=== PATIENT | female | born 1950 | race Caucasian/White ===

== ENCOUNTER 2018-08-12 05:50 | Observation (INO) ==
--- NOTE | 2018-07-11 13:36 | PAT Medication Instructions ---
Medication Instructions Date of Service July 11, 2018 Home Medications atorvastatin 80 mg PO HS cyclobenzaprine 10 mg PO TID PRN duloxetine 30 mg PO HS glipizide 10 mg PO QAM hydrocodone-acetaminophen 1 tab PO BID PRN lansoprazole [Prevacid] 30 mg PO QAM levothyroxine 125 mcg PO QAM metformin 850 mg PO BID pioglitazone 45 mg PO QAM sitagliptin [Januvia] 100 mg PO QAM temazepam 30 mg PO HS PRN valsartan 40 mg PO QAM DO NOT take the morning of surgery cyclobenzaprine 10 mg PO TID PRN glipizide 10 mg PO QAM metformin 850 mg PO BID pioglitazone 45 mg PO QAM sitagliptin [Januvia] 100 mg PO QAM valsartan 40 mg PO QAM Take morning of surgery With a small sip of water, OTHERWISE NOTHING TO EAT OR DRINK AFTER MIDNIGHT: hydrocodone-acetaminophen 1 tab PO BID PRN (if needed, may be taken up to four hours before surgery) lansoprazole [Prevacid] 30 mg PO QAM levothyroxine 125 mcg PO QAM Take evening before surgery atorvastatin 80 mg PO HS cyclobenzaprine 10 mg PO TID PRN (if needed) duloxetine 30 mg PO HS hydrocodone-acetaminophen 1 tab PO BID PRN (if needed) metformin 850 mg PO BID temazepam 30 mg PO HS PRN (if needed) Other Notes If you have any questions please call us at [phone] or [phone] or [phone] or [phone]
--- NOTE | 2018-07-12 13:14 | Anesthesiology Consultation ---
Date of Service July 12, 2018 Assessment & Plan (1) Encounter for pre-operative examination: CHECK BSG AM DOS Chart Review Chart Review: Acceptable Risk for Surgery and Patient seen in Pre Admission Testing Teaching & Discussion Instructed NPO after midnight before surgery, except medications with 15 cc of water. Medication instructions provided according to the PAT guidelines. History Surgery Operation Date: 08/12/18 07:30 Proposed Procedures p L2-L3 Laminectomy and Fusion - Melo Sapp, Height/Weight Height: 5 ft 5 in Weight: 109.8 kg Allergies Allergy/AdvReac Type Severity Reaction Status Date / Time citalopram [From Celexa] AdvReac Gastrointestinal Verified 07/09/18 10:07 Upset sertraline [From Zoloft] AdvReac Gastrointestinal Verified 07/09/18 10:07 Upset trazodone AdvReac Gastrointestinal Verified 07/09/18 10:07 Upset Medications Home Medications Medication Instructions Recorded Confirmed Last Taken atorvastatin 80 mg PO HS 07/09/18 07/09/18 Unknown cyclobenzaprine 10 mg PO TID PRN 07/09/18 07/09/18 Unknown duloxetine 30 mg PO HS 07/09/18 07/09/18 Unknown glipizide 10 mg PO QAM 07/09/18 07/09/18 Unknown hydrocodone-acetaminophen 1 tab PO BID PRN 07/09/18 07/09/18 Unknown lansoprazole [Prevacid] 30 mg PO QAM 07/09/18 07/09/18 Unknown levothyroxine 125 mcg PO QAM 07/09/18 07/09/18 Unknown metformin 850 mg PO BID 07/09/18 07/09/18 Unknown pioglitazone 45 mg PO QAM 07/09/18 07/09/18 Unknown sitagliptin [Januvia] 100 mg PO QAM 07/09/18 07/09/18 Unknown temazepam 30 mg PO HS PRN 07/09/18 07/09/18 Unknown valsartan 40 mg PO QAM 07/09/18 07/09/18 Unknown Past Medical History Medical History Chronic back pain PT STATES +PAIN RADIATING FROM LOWER BACK INTO RIGHT HIP AND LEG. Degenerative disc disease Diabetes mellitus, type 2 GERD (gastroesophageal reflux disease) History of breast cancer s/p R mastectomy and subsequent reconstruction Hyperlipidemia Hypertension Hypothyroidism Morbid obesity Osteoarthritis Exercise / Class Metabolic Activity III < 4 Walking/Shop/Light housework (has been very limited by back pain recently, but denies CP or SOB with walking) Past Surgical History Surgical History History of breast surgery RECONTRUCTIVE SURGERY 1 YEAR FOLLOWING MASTECTOMY History of carpal tunnel release B/L History of cataract extraction with lens replacement B/L History of section X2 History of cholecystectomy History of hysterectomy History of repair of rotator cuff B/L SHOULDER History of right mastectomy History of tonsillectomy Past Anesthesia History No Hx of Anesthesia Complications and No Family Hx of Anesthesia Complications History of PONV No Hx of PONV and No Hx of Motion Sickness Social History Smoking Status: Former smoker tobacco type: cigarettes Smoking cigarettes per day: HX OF 1PPD X 20 YEARS, QUIT 20 YEARS AGO Do You Dip or Chew Tobacco: No Hx Alcohol Use: No Alcohol Intake Frequency Comment: NONE Hx Substance Use: No substance use type: does not use Review of Systems Pt denies any recent chest pain, shortness of breath, palpitations, cough, fever or URI. Physical Exam Vital Signs BP: 98/67 (reports occasional orthostatic hypotension symptoms; BP med was recently lowered) P: 79bpm SPO2: 95% RA T: 98.2 F R: 16 Constitutional + morbidly obese ENMT Mouth: + dentures and + edentulous Thyromental Distance: < 3.5 Finger Breadths (3) Neck + thick neck; neck extension not limited Respiratory normal respiratory effort Auscultation: lungs clear to auscultation bilaterally Cardiovascular Rate/Rhythm: regular rate and regular rhythm Heart Sounds: no murmur Vessels: no carotid bruit Extremities: no edema Testing Electrocardiogram Date: 07/12/18 Findings: + NSR @ (74) Chest X-Ray Date: 07/12/18 Findings: + NAD Laboratory Results 07/12/18 12:54 07/12/18 12:54 Blood Type B Positive 07/12/18 12:54 Antibody Screen NEGATIVE 07/12/18 12:54 PT 10.3 Seconds (9.0-12.0) 07/12/18 12:54 INR 1.0 (0.9-1.1) 07/12/18 12:54 APTT 25.6 Seconds (21.0-31.0) 07/12/18 12:54
[2018-07-12 13:44] LABS: Basophils # (auto) 0.02 K/uL (0-0.2); Basophils % (auto) 0.4 %; Eosinophils # (auto) 0.13 K/uL (0-0.5); Eosinophils % (auto) 2.3 %; Hematocrit (blood only) 37.9 % (37-47); Hemoglobin 12.5 g/dL (12.0-16.0); Immature Granulocytes # (auto) 0.02 K/uL (0.00-0.02); Immature Granulocytes % (auto) 0.4 %; Lymphocytes # (auto) 1.83 K/uL (1.2-3.4); Lymphocytes % (auto) 32.3 %; Mean Corpuscular Volume 87.5 fL (80-100); Mean Platelet Volume 11.4 fL (7.4-10.4); Monocytes # (auto) 0.65 K/uL (0.11-0.59); Monocytes % (auto) 11.5 %; Neutrophils # (auto) 3.02 K/uL (1.4-6.5); Neutrophils % (auto) 53.1 %; Platelet Count 304 K/uL (130-400); RDW Coefficient of Variation 14.2 % (11.5-14.5); RDW Standard Deviation 45.7 fL (36.4-46.3); Red Blood Count 4.33 M/uL (4.2-5.4); White Blood Count 5.67 K/uL (4.8-10.8)
--- NOTE | 2018-07-12 13:44 | XRay Report ---
TWO VIEW CHEST CLINICAL HISTORY: Preoperative examination. FINDINGS: PA and lateral chest radiographs are obtained. No prior studies are available for compariso n at the time of dictation. The cardiomediastinal silhouette is unremarkable comment noting atherosc lerotic calcification of the thoracic aorta. There is elevation of right hemidiaphragm and bibasilar atelectasis. Nonspecific interstitial thickening is likely chronic. No airspace consolidation or pleu ral effusion is identified. There is no pneumothorax. The skeletal structures are osteopenic. The bon y thorax appears intact. Surgical clips are noted in the right axilla and upper abdomen. IMPRESSION: No active disease in the chest. Electronically signed by: Jimmy Cox M.D. 07/12/2018 1:42 PM
[2018-07-12 14:05] LABS: Partial Thromboplastin Ratio 0.9; Partial Thromboplastin Time 25.6 Seconds (21.0-31.0); Prothrombin Time 10.3 Seconds (9.0-12.0)
[2018-07-12 14:53] LABS: BUN Creatinine Ratio 10.7 (10-20); Creatinine Clr Calc Pharmacy 67.1 ml/min; Est GFR (African American) 67.9; Est GFR (Non-African American) 58.6; Potassium 4.3 mmol/L (3.5-5.1)
--- NOTE | 2018-08-09 10:41 | History and Physical Report ---
DATE OF ADMISSION: 08/12/2018 PREOPERATIVE SURGERY: 08/12/2018. CHIEF COMPLAINT: Back and lower extremity difficulty, paresthesias. WORKING DIAGNOSIS: Disc herniation, L2-L3, lumbar spine. HISTORY OF PRESENT ILLNESS: Aure is delightful. She is 68. She has a lumbar difficulty for 2 decades, uncontrolled last month or so with increasing back and lower extremity difficulty, weakness. She has failed conservative care. She is scheduled for elective surgery. PAST MEDICAL HISTORY: Diabetes, hypertension, breast CA. PAST SURGICAL HISTORY: Shoulder breast carcinoma surgery, carpal tunnel, . ALLERGIES: Negative. MEDICATIONS: Zocor, hydrochlorothiazide. SOCIAL HISTORY: She is , does not drink. Two grown children. No tobacco. REVIEW OF SYSTEMS: Twelve systems reviewed. She denies any fevers, sweats, chills, any bowel and bladder issues. No pain, cough, sneeze. Denies chest pain, palpitations. No asthma, wheezing, shortness of breath. No nausea, vomiting. No urgency, frequency, dysuria. Has musculoskeletal back pain, only positive. PHYSICAL EXAMINATION: GENERAL: She is 5 feet 3 inches, 239 pounds, in no terrible distress. MUSCULOSKELETAL: She has difficulty with ambulation, difficulty with flexion of the spine. She has some numbness and tingling. VITAL SIGNS: Blood pressure 130/80, pulse 80, respirations 16. CARDIAC: Normal S1, S2, no S3. LUNGS: Clear to auscultation. No rales, rhonchi, wheezing. NEUROLOGIC: She has weakness of the quadriceps area, weakness of iliopsoas. Reflexes are blunted and decreased strength. ASSESSMENT: Includes that of a disc herniation, lumbar spine. PLAN: Includes a lumbar spine discectomy, L2-L3 and fusion L2-L3 lumbar spine, will be done at [facility], 08/12/2018.
[2018-08-12] MEDS ORDERED: CEFAZOLIN 2000MG 2,000 MG/15 ML SYR IV SCH (06:00)
[2018-08-12] MEDS ORDERED: SODIUM CHLORIDE 0.9% 1,000 ML IV SCH (06:00)
[2018-08-12] MEDS ORDERED: LR 15ML/HR IV SCH (06:00)
[2018-08-12] MEDS ORDERED: ACETAMINOPHEN 1,000 MG/100 ML VIAL IV SCH (06:00)
[2018-08-12] MEDS ORDERED: VANCOMYCIN HCL 1000MG/20ML VIAL ONE ×2 (07:02→07:22)
[2018-08-12] MEDS ORDERED: BACITRACIN INJ 50,000 UNIT VIAL ONE (07:02)
[2018-08-12] MEDS ORDERED: GELATIN SPONGE SZ 100 ONE (07:02)
[2018-08-12] MEDS ORDERED: THROMBIN FOR SOLN 20000 UNIT KIT ONE (07:02)
[2018-08-12] MEDS ORDERED: BUPIVACAINE/EPINEPHRINE 0.5% MPF 1:200,000 30 ML VIAL ONE (07:03)
[2018-08-12] MEDS ORDERED: MIDAZOLAM HCL 1 MG/ML 2ML VIAL ONE (07:09)
[2018-08-12] MEDS ORDERED: fentaNYL citrate 100 MCG/2 ML VIAL ONE (07:10)
[2018-08-12] MEDS ORDERED: ATROPINE SULFATE 0.1 MG/ML 10ML SYR IV PRN (07:19)
[2018-08-12] MEDS ORDERED: ONDANSETRON INJ 2 MG/ML 2 ML VIAL IV PRN (07:19)
[2018-08-12] MEDS ORDERED: ePHEDrine sulfate 50 MG/ML AMP IV PRN (07:19)
[2018-08-12] MEDS ORDERED: MoRPHine SULFATE 10 MG/ML CARP/VIAL IV PRN (07:19)
--- NOTE | 2018-08-12 07:19 | History & Physical Bridge Note ---
Date of Service August 12, 2018 History & Physical Bridge Note I have examined the patient, reviewed the History & Physical and in the interval since the performance of the History & Physical I have noted the following changes of clinical significance: no changes noted
[2018-08-12] MEDS ORDERED: ONDANSETRON INJ 2 MG/ML 2 ML VIAL ONE (08:22)
[2018-08-12] MEDS ORDERED: ePHEDrine sulfate 50 MG/ML SYR ONE (08:22)
[2018-08-12] MEDS ORDERED: DEXAMETHASONE SOD INJ 4 MG/ML VIAL ONE (08:22)
[2018-08-12] MEDS ORDERED: NEOSTIGMINE METHYLSULFATE 5 MG/5 ML SYR ONE (08:22)
[2018-08-12] MEDS ORDERED: LARYING-O-JET KIT (LTA) ONE (08:22)
[2018-08-12] MEDS ORDERED: ROCURONIUM BROMIDE 10 MG/ML 5 ML VIAL ONE (08:22)
[2018-08-12] MEDS ORDERED: HYDROmorphone INJ 2 MG/ML SYR/VIAL ONE (08:22)
[2018-08-12] MEDS ORDERED: PROPOFOL IV EMULSION 10 MG/ML 20 ML VIAL IV ONE (08:22)
[2018-08-12] MEDS ORDERED: LIDOCAINE HCL 2% 2 ML VIAL/AMP(20MG/ML) INFIL ONE (08:22)
[2018-08-12] MEDS ORDERED: GLYCOPYRROLATE 0.2 MG/ML VIAL ONE (08:22)
--- NOTE | 2018-08-12 09:30 | Fluoroscopy Report ---
FL spine 1V any level CLINICAL HISTORY: 68 years-old Female presenting with L2-L3 LAMI AND FUSION. TECHNIQUE: 1 fluoroscopic image(s) recorded as part of an intraoperative procedure. COMPARISON: 07/05/2018. FINDINGS/IMPRESSION: Surgical and she mentation projects over the lower lumbar spine. Posterior bilateral presumably trans pedicular screw and leland fixation of 2 adjacent levels in the lumbar spine. Please see surgical report for further details. Fluoroscopy dosage (mGy): 5.77. Fluoroscopy time: 7.7 seconds. Number or time of high level fluoroscopy (HLF), digital spot, or digital subtraction images: 0. Electronically signed by: Garrick Vu M.D. 08/12/2018 9:29 AM
[2018-08-12] MEDS: fentaNYL citrate 100 MCG/2 ML VIAL IV PRN ×3 (09:49→10:00)
--- NOTE | 2018-08-12 10:12 | Operative Report ---
DATE OF OPERATION: 08/12/2018 PREOPERATIVE DIAGNOSES: Large disc herniation L2-L3 lumbar spine; instability, lumbar spine L2-L3. POSTOPERATIVE DIAGNOSES: Large disc herniation L2-L3 lumbar spine; instability, lumbar spine L2-L3. PROCEDURE: Included: 1. A posterior approach lumbar spine decompression laminectomy, foraminotomy and discectomy L2-L3 lumbar spine. 2. Because of the instability, pedicle screw instrumentation at 2-3 lumbar spine. 3. Lastly the posterolateral fusion. Prior to patient being brought to the operating room, I properly identified the patient in the holding area. I did a bridge note as well. DESCRIPTION OF PROCEDURE: We brought her back to the operating room, a general intubated anesthetic provided, Underwood catheter administered. Placed prone, scrubbed, prepped and draped sterile. We made a skin incision, fascial incision down on to the L2-L3 interspace. I had to carefully dissect out over the dura to find the associated nerve root. I thought was able to deliver most of the disc material into the disc area. I did a formal discectomy. I felt that the facet joints were fairly unstable and fairly loose and there is a sort of [id number] instability, but not gross instability such as a spondylolisthesis. I felt obligated to stabilize the spine. Thus 2 pedicle screws were placed into 2 and 3 to stabilize the 2-3 interval. It fit perfectly anatomic and the reduction was appropriate. We irrigated and closed in layers with #1 Vicryl suture, 2-0 and 3-0 nylon on the skin. Prior to closure, we bone grafted out over the transverse processes of 2-3 as well to initiate the spinal fusion. The drain was activated. The patient brought safely back to recovery room without incident. Sponge and needle count correct at the close. IMPLANTS USED: For the spinal case were from [employer] with a combination of autograft and a demineralized bone matrix called DBM. I attest to the content of the Intraoperative Record and any orders documented therein. Any exception s are noted below.
--- NOTE | 2018-08-12 10:25 | Anesthesiology Progress Note ---
Date of Service August 12, 2018 Anesthesia Post Procedure Vital Signs Vital Signs: Temp Pulse Pulse Pulse Resp BP BP 08/12/18 10:16 97.5 F L 106 H 12 146/73 H 08/12/18 10:15 102 H 14 08/12/18 10:11 105 H 14 165/83 H 08/12/18 10:10 105 H 14 08/12/18 10:07 107 H 16 156/73 H 08/12/18 10:05 105 H 10 L 08/12/18 10:01 107 H 14 166/79 H 08/12/18 10:00 104 H 14 08/12/18 09:56 103 H 14 158/69 H 08/12/18 09:55 107 H 16 08/12/18 09:51 106 H 14 175/71 H 08/12/18 09:50 106 H 14 08/12/18 09:46 107 H 14 181/83 H 08/12/18 09:45 113 H 13 08/12/18 09:41 113 H 21 187/100 H 08/12/18 09:40 118 H 20 08/12/18 09:38 118 H 23 08/12/18 09:37 97.5 F L 121 H 106 H 14 246/141 H 187/100 H 08/12/18 06:26 98.2 F 92 H 22 140/81 Pulse Ox 08/12/18 10:16 96 08/12/18 10:15 97 08/12/18 10:11 98 08/12/18 10:10 95 08/12/18 10:07 95 08/12/18 10:05 86 L 08/12/18 10:01 100 08/12/18 10:00 95 08/12/18 09:56 96 08/12/18 09:55 98 08/12/18 09:51 98 08/12/18 09:50 100 08/12/18 09:46 97 08/12/18 09:45 96 08/12/18 09:41 95 08/12/18 09:40 94 08/12/18 09:38 08/12/18 09:37 96 08/12/18 06:26 93 Pain Intensity Back: Pain Intensity: 5 Transfer of Care Handoff Completed per policy Notes Mental Status: alert / awake / arousable and participated in evaluation Patient Amnestic to Procedure: Yes Nausea / Vomiting: adequately controlled Pain: adequately controlled Airway Patency, RR, SpO2: stable & adequate BP & HR: stable & adequate Hydration State: stable & adequate Anesthetic Complications: no major complications apparent and Pt Satisfied with anesthetic care
[2018-08-12] MEDS ORDERED: METOCLOPRAMIDE HCL INJ 5 MG/ML 2 ML VIAL IV PRN (10:43)
[2018-08-12] MEDS ORDERED: MAGNESIUM HYDROXIDE SUSP 30 ML UDC PO PRN (10:43)
[2018-08-12] MEDS ORDERED: BISACODYL 10 MG SUPP PR PRN (10:43)
[2018-08-12] MEDS ORDERED: ACETAMINOPHEN 1,000 MG/100 ML VIAL IV PRN ×2 (10:43)
[2018-08-12] MEDS ORDERED: PHARMACY GLYCEMIC MGMT CONSULT SCH (11:04)
[2018-08-12] MEDS ORDERED: DEXTROSE 50% 50 ML SYRINGE IV PRN (11:15)
[2018-08-12] MEDS ORDERED: GLUCAGON FOR INJ 1 MG VIAL IM PRN (11:15)
[2018-08-12] MEDS ORDERED: GLUCOSE 10 TABS/TUBE PO PRN (11:15)
[2018-08-12] MEDS ORDERED: GLUCOSE 40% GEL 15 GM TUBE PO PRN (11:15)
[2018-08-12] MEDS ORDERED: CARBOHYDRATES FOR HYPOGLYCEMIA PO PRN (11:15)
[2018-08-12] MEDS ORDERED: INSULIN GLARGINE SOLOSTAR 100 UNITS/ML 3 ML PEN SC ONE ×3 (11:15→21:00)
--- NOTE | 2018-08-12 11:17 | Pharmacy Report ---
Glycemic Control Consultation - Date of Service August 12, 2018 - Scope Scope: Glycemic Pharmacist consulted by Judson Yen PA-C on 08/12/18 for glycemic control and to write orders per [facility] inpatient glycemic control protocol - Objective Weight: 110.2 kg Accuchecks BSG (last 24hrs): 08/12/18 08/12/18 06:20 09:40 POC Glucose 157 H 132 H - Recent Pertinent Medications Outpatient Anti-diabetic Regimen: * Glipizide 10mg PO Daily * Metformin 850mg PO BID * Pioglitizone 45mg PO Daily * Sitagliptin 100mg PO Daily * A1c = 7.3 % 12/20/17, new A1c on order Risk Factors for Insulin Resistance: * Steroids: Dexamethasone 4mg IV x1 preop * Infection: cefazolin pre and postop * Recent Surgery: s/p lumbar decompression and fusion * Diet: Type 2 DM - Assessment & Plan Assessment & Plan: ASSESSMENT: * 68 year old female s/p lumbar decompression and fusion, received 1 dose of Dexamethasone 4mg IV. * Type 2 diabetic maintained on oral antidiabetic agents as an outpatient * Oral agents are not recommended for inpatient use d/t drug interactions, changing PO intake, and difficulty titrating for acute hyper/hypoglycemia. ADA recommends re-initiating outpatient oral agents 1-2 days prior to discharge if/when appropriate if they were held on admission. * Will hold oral agents for admission and utilize SQ basal bolus insulin regimen which is the recommended regimen for inpatient glycemic control. * Will initiate weight based insulin dosing for insulin kandice patient and titrate based on BSG trends. * Will give stressed dose of Lantus x 1 now to over effects of IV Steroid, and PRN dose tonight, and accuchecks overnight * Will loosen CF and CR as steroid effects wear off * Order updated A1c * ADA & AACE recommend a goal blood sugar range 140-180 mg/dl for the majority of critically ill & non-critically ill patients. However, more stringent targets may be selected in individual cases. Will utilize more stringent goal of 110-140mg/dl based on patient age & comorbidities. Additionally, tighter glycemic control is warranted to facilitate wound/infection healing. PLAN FOR INPATIENT GLYCEMIC CONTROL: * Holding outpatient oral diabetes medications * Basal insulin * Lantus 40 units SQ x 1 dose now at 1130, then 20 units HS x1 for BSG > 180mg/dl * Bolus insulin * NovoLog per scale ACHS or Q6hrs while NPO and overnight at 0000, 0400 * Goal Range: Low 110 mg/dL - High 140 mg/dL * Correction Factor: 15 mg/dL/unit * Nutritional / Prandial insulin per carb ratio of 1 unit per 5 grams CHO consumed * Please note that the plan above was derived based on current level of insulin resistance and hospital stress. These recommendations are appropriate for inpatient admission only. Plan of care upon discharge will need to be reassessed to avoid potential outpatient hypo/hyperglycemia. Thank you.
--- NOTE | 2018-08-12 11:21 | Post Operative Brief Note ---
Immediate Post Op Note v1 Date of Surgery August 12, 2018 Pre & Post Diagnosis Operation Date: 08/12/18 07:30 Pre-Op Diagnosis: Disc herniation, L2-L3, lumbar spine. Post-Op Diagnosis: Disc herniation, L2-L3, lumbar spine. Procedure Operation Date: 08/12/18 07:30 Actual Procedures p L2-L3 Laminectomy and Fusion(Not Applicable) - Melo Sapp DO Surgeon Melo Sapp DO Call Person lilia Estimated Blood Loss 100 Findings Consistent with Post-Op Diagnosis Drains Underwood Catheter and Hemovac Drain
[2018-08-12] MEDS: OXYCODONE HCL IR 5 MG TAB (IMMEDIATE RELEASE) PO PRN ×2 (12:39→18:03)
[2018-08-12] MEDS: INSULIN ASPART 100 UNITS/ML 3 ML PEN SC SCH ×3 (12:46→20:50)
[2018-08-12] MEDS: SODIUM CHLORIDE 0.9% 1000ML 1,000 ML IV SCH ×2 (12:47→22:31)
[2018-08-12] MEDS: HYDROmorphone INJ 0.5 MG/0.5 ML SYR IV PRN ×2 (13:53→22:30)
[2018-08-12] MEDS: CEFAZOLIN 2000MG 2,000 MG/15 ML SYR IV SCH ×2 (14:16→22:32)
[2018-08-12] MEDS: ONDANSETRON INJ 2 MG/ML 2 ML VIAL IV PRN (19:03)
[2018-08-12] MEDS ORDERED: ATORVASTATIN 40 MG TAB PO SCH (21:00)
[2018-08-12] MEDS ORDERED: DOCUSATE SODIUM/SENNA 50/8.6MG TAB PO SCH (21:00)
[2018-08-13] MEDS: INSULIN ASPART 100 UNITS/ML 3 ML PEN SC SCH ×4 (00:30→12:58)
[2018-08-13] MEDS: OXYCODONE HCL IR 5 MG TAB (IMMEDIATE RELEASE) PO PRN ×3 (02:14→16:04)
[2018-08-13] MEDS: ONDANSETRON INJ 2 MG/ML 2 ML VIAL IV PRN (02:15)
[2018-08-13] MEDS ORDERED: LEVOTHYROXINE SODIUM 125 MCG TABLET PO SCH (06:30)
[2018-08-13] MEDS: HYDROmorphone INJ 0.5 MG/0.5 ML SYR IV PRN (07:31)
[2018-08-13 07:34] LABS: Estimated Average Glucose 186 mg/dl; Hemoglobin A1C 8.1 % (4.5-5.6)
--- NOTE | 2018-08-13 07:56 | Anesthesiology Progress Note ---
Date of Service August 13, 2018 Anesthesia Post Procedure Vital Signs Vital Signs: Temp Pulse Pulse Pulse Resp BP BP 08/13/18 07:28 37.2 C 117 H 18 138/72 08/13/18 03:51 37.3 C 111 H 16 140/71 08/12/18 23:10 37.3 C 95 H 18 144/85 H 08/12/18 19:40 36.8 C 87 18 144/81 H 08/12/18 16:51 36.3 C L 08/12/18 15:33 74 16 142/83 H 08/12/18 13:30 87 16 143/84 H 08/12/18 12:27 99 H 16 153/83 H 08/12/18 11:29 94 H 16 141/84 H 08/12/18 11:01 36.5 C 101 H 16 149/82 H 08/12/18 10:30 36.5 C 103 H 14 143/80 H 08/12/18 10:16 36.4 C L 106 H 12 146/73 H 08/12/18 10:15 102 H 14 08/12/18 10:11 105 H 14 165/83 H 08/12/18 10:10 105 H 14 08/12/18 10:07 107 H 16 156/73 H 08/12/18 10:05 105 H 10 L 08/12/18 10:01 107 H 14 166/79 H 08/12/18 10:00 104 H 14 08/12/18 09:56 103 H 14 158/69 H 08/12/18 09:55 107 H 16 08/12/18 09:51 106 H 14 175/71 H 08/12/18 09:50 106 H 14 08/12/18 09:46 107 H 14 181/83 H 08/12/18 09:45 113 H 13 08/12/18 09:41 113 H 21 187/100 H 08/12/18 09:40 118 H 20 08/12/18 09:38 118 H 23 08/12/18 09:37 36.4 C L 121 H 106 H 14 246/141 H 187/100 H Pulse Ox 08/13/18 07:28 93 08/13/18 03:51 96 08/12/18 23:10 94 08/12/18 19:40 99 08/12/18 16:51 95 08/12/18 15:33 08/12/18 13:30 08/12/18 12:27 95 08/12/18 11:29 08/12/18 11:01 08/12/18 10:30 94 08/12/18 10:16 96 08/12/18 10:15 97 08/12/18 10:11 98 08/12/18 10:10 95 08/12/18 10:07 95 08/12/18 10:05 86 L 08/12/18 10:01 100 08/12/18 10:00 95 08/12/18 09:56 96 08/12/18 09:55 98 08/12/18 09:51 98 08/12/18 09:50 100 08/12/18 09:46 97 08/12/18 09:45 96 08/12/18 09:41 95 08/12/18 09:40 94 08/12/18 09:38 08/12/18 09:37 96 Pain Intensity Back: Pain Intensity: 3 Notes Mental Status: alert / awake / arousable and participated in evaluation Patient Amnestic to Procedure: Yes Nausea / Vomiting: adequately controlled Pain: adequately controlled Airway Patency, RR, SpO2: stable & adequate BP & HR: stable & adequate Hydration State: stable & adequate Anesthetic Complications: no major complications apparent and Pt Satisfied with anesthetic care
[2018-08-13] MEDS ORDERED: INSULIN GLARGINE SOLOSTAR 100 UNITS/ML 3 ML PEN SC ONE ×2 (08:30→18:00)
[2018-08-13] MEDS ORDERED: SITAGLIPTIN PHOSPHATE 100 MG TAB PO SCH (09:00)
[2018-08-13] MEDS ORDERED: PANTOprazole 40 MG TAB PO SCH (09:00)
[2018-08-13] MEDS ORDERED: VALSARTAN 80 MG TAB PO SCH (09:00)
--- NOTE | 2018-08-14 08:28 | Discharge Summary ---
SUBJECTIVE: She is alert, oriented, minimal complaints of pain. Taking p.o., ambulatory. She has had an uneventful admission. PLAN: We will discharge her home later on today. She has physical therapy ordered, will change her dressing. She has a followup appointment and prescriptions are on her chart.
--- NOTE | 2018-08-20 11:07 | Operative Report ---
DATE OF OPERATION: 08/12/2018 PREOPERATIVE DIAGNOSIS: Instability and large disc herniation, lumbar spine at L2-L3. POSTOPERATIVE DIAGNOSIS: Instability and large disc herniation, lumbar spine at L2-L3. PROCEDURES: Included a lumbar spine laminectomy, discectomy, foraminotomy, partial facetectomy and resection of a large lateral disc herniation, lumbar spine at L2-L3, also pedicle screw instrumentation and fusion L2-L3. SURGEON: Melo Sapp DO [employer] OPERATOR: Joe Yen PA-C. COMPLICATIONS: Zero. ESTIMATED BLOOD LOSS: 250. ANESTHETIC: General. DESCRIPTION OF PROCEDURE: The patient was taken to the operating room and general intubated anesthetic provided to the patient, placed prone, prepped and draped sterile. We positively identified the interspace at L2-L3, dissecting the soft tissue in the same plane. I did a laminectomy procedure. I did take out the facet joint on the affected side to decompress the associated nerve root and to do a rigorous discectomy. I felt with the dissection of the facet joint and the rigorous discectomy that she was relatively unstable. I felt at that point in time, she needed instrumentation as I went forward with pedicle screws at L2 and L3, locked down the construct in anatomic position. The pedicle entry points were found with anatomic alignment and guidelines along with C-arm guidelines as well. I was pleased with the fixation. We irrigated thoroughly with approximately 500 mL of fluid. We packed and bone graft out over the transverse processes. We closed in layer by layer fashion with 1 Vicryl suture over a Hemovac drain and over vancomycin powder. The patient was brought to recovery room in satisfactory stable condition. There were no complications. Estimated blood loss 250 mL. MATERIALS USED: By the [employer], pedicle screw construct, single level and combination of autograft and demineralized bone matrix. Sponge and needle count also correct. I attest to the content of the Intraoperative Record and any orders documented therein. Any exception s are noted below.
== END 2018-08-13 16:50 | disposition home or self-care (01) ==
LOC: ASU 05:50 → 3E 05:50

== ENCOUNTER 2018-08-15 16:23 | Inpatient (IN) ==
[2018-08-15] MEDS ORDERED: GLUCOSE 10 TABS/TUBE PO PRN (19:15)
[2018-08-15] MEDS ORDERED: CARBOHYDRATES FOR HYPOGLYCEMIA PO PRN (19:15)
[2018-08-15] MEDS ORDERED: GLUCOSE 40% GEL 15 GM TUBE PO PRN (19:15)
[2018-08-15] MEDS ORDERED: DEXTROSE 50% 50 ML SYRINGE IV PRN (19:15)
[2018-08-15] MEDS ORDERED: GLUCAGON FOR INJ 1 MG VIAL IM PRN (19:15)
--- NOTE | 2018-08-15 19:29 | History & Physical Report ---
Date of Service August 15, 2018 Assessment & Plan (1) Fever and chills: 68 y/o F Hx HTN, HLD, DM II, obese, hypothyroid, lumbar stenosis. She underwent an uncomplicated L2-3 discectomy and fusion 08/12/18. She had been recovering well initially and then had onset of worsening back pain, difficulty walking and fevers. She reports a Tmax of 102 the prior evening. She denies a cough, SOB, N/V/Adeline dysuria. It is not clear if she is have lower extremity weakness or if she is unable to walk due to pain. She presented to [place] initially and was transferred to [facility] as her surgery took place here. Review of labs from [place] demonstrate a normal lactic acid, Anemia with an H b of 8.7 and an elevated ALT and Alk phos. 1) Back pain and fever post-op - We will obtain an MRI with contrast and consult the orthopedist. She will be placed on Vanc and ceftriaxone in the interim. Narcotics provided PRN. NPO after midnight, IVF. 2) DM II - placed on a sliding scale 3) HTN - cont Valsartan with parameters 4) HLD - cont Atorvastatin 5) Hypothyroidism - cont Synthroid 6) LFTs elevated - this may be a post-op elevation. She does not have any GI symptoms at present - we will trend AM. Full code - SCDs Total time for this admit including review of labs, meds, imaging, records - discussion with pt and orthopedist - 40 min Present on Admission?: Yes History of Present Illness Primary Care Provider: Dion Randall MD 68 y/o F Hx HTN, HLD, DM II, obese, hypothyroid, lumbar stenosis. She underwent an uncomplicated L2-3 discectomy and fusion 08/12/18. She had been recovering well initially and then had onset of worsening back pain, difficulty walking and fevers. She reports a Tmax of 102 the prior evening. She denies a cough, SOB, N/V/Adeline dysuria. It is not clear if she is have lower extremity weakness or if she is unable to walk due to pain. She presented to [place] initially and was transferred to [facility] as her surgery took place here. Review of labs from [place] demonstrate a normal lactic acid, Anemia with an Hb of 8.7 and an elevated ALT and Alk phos. 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 Allergies Allergy/AdvReac Type Severity Reaction Status Date / Time citalopram [From Celexa] AdvReac Gastrointestinal Verified 08/12/18 06:17 Upset oxycodone [From Roxicodone] AdvReac Agitated Verified 08/15/18 18:44 sertraline [From Zoloft] AdvReac Gastrointestinal Verified 08/12/18 06:17 Upset trazodone AdvReac Gastrointestinal Verified 08/12/18 06:17 Upset Home Medications Home Medications Medication Instructions Recorded Confirmed Type Januvia 100 mg PO QAM 07/09/18 08/12/18 History glipizide 10 mg PO QAM 07/09/18 08/12/18 History lansoprazole [Prevacid] 30 mg PO QAM 07/09/18 08/12/18 History levothyroxine 125 mcg PO QAM 07/09/18 08/12/18 History pioglitazone 45 mg PO QAM 07/09/18 08/12/18 History temazepam 30 mg PO HS PRN 07/09/18 08/12/18 History valsartan 40 mg PO QAM 07/09/18 08/12/18 History metformin 750 mg PO BID 08/12/18 08/12/18 History hydrocodone-acetaminophen 1 tab PO Q6H PRN #40 tab 08/13/18 Rx atorvastatin 80 mg tablet 80 mg PO HS #90 tab 08/14/18 08/14/18 Rx blood sugar diagnostic strips #10 ea 08/14/18 08/14/18 History duloxetine 30 mg capsule,delayed 30 mg PO DAILY #1 cap 08/14/18 08/14/18 History release gabapentin 800 mg tablet 800 mg PO TID #90 tab 08/14/18 08/14/18 History lancets 33 gauge #100 ea 08/14/18 08/14/18 History Past Med/Surg History Medical History Chronic back pain PT STATES +PAIN RADIATING FROM LOWER BACK INTO RIGHT HIP AND LEG. Degenerative disc disease Diabetes mellitus, type 2 GERD (gastroesophageal reflux disease) History of breast cancer s/p R mastectomy and subsequent reconstruction Hyperlipidemia Hypertension Hypothyroidism Morbid obesity Osteoarthritis Surgical History S/P lumbar spinal fusion 08/12/18 Dr. Melo Sapp History of breast surgery RECONTRUCTIVE SURGERY 1 YEAR FOLLOWING MASTECTOMY History of carpal tunnel release B/L History of cataract extraction with lens replacement B/L History of section X2 History of cholecystectomy History of hysterectomy History of repair of rotator cuff B/L SHOULDER History of right mastectomy History of tonsillectomy Social History Preferred Language: Citizen Of [place] Communication Ability: Effective Videogame Tester Required: No Beliefs That Will Affect Care: None Current Living Situation: Family Other Information That Helps Us Care for You: No Feels Safe at Home: Yes Safety Concerns: Feels Safe At This Time Smoking Status: Former smoker Tobacco Type: cigarettes Cigarettes Per Day: history of 1 PPD X 20 years, quit 20 years ago, 1998 Do You Dip or Chew Tobacco: No Second Hand Exposure: No Tobacco Cessation Education Requested by Patient: No Hx Alcohol Use: No Hx Substance Use: No Review of Systems Review of Systems: Gen: + fever and weakness x 2 days ENT: Denies congestion, throat pain, hearing loss Eyes: Denies acute visual changes CV: Denies CP, palpitations Pulmonary: Denies SOB, cough, wheezing GI: Denies N/V, diarrhea, constipation Neuro: Denies acute or unilateral weakness, acute gait impairment, headache or acute visual changes Musculoskeletal: reports severe lower back pain and difficulty ambulating Endocrine: Denies polydipsia, polyuria Skin: Denies acute rashes or ulcers Physical Exam Physical Exam: General: Obese, elderly F, AAO x 3, no distress ENT: No erythema or exudates, no thrush Eyes: LENA, EOMI Head and neck: Normocephalic, atraumatic, neck is supple. Chest/heart: Nontender, S1,2, RRR, no murmurs, no gallops Lungs: CTAB, no wheezing or crackles Abdomen: Nontender, nondistended, BS+ Neuro: AAO x 3, speech is clear, no unilateral weakness or loss of sensation, coordination intact - strength and sensation are intact in th LE BL - did not attempt to ambulate - proximal strength testing was limited by pain Musculoskeletal: No joint inflammation, muscle tenderness, FROM Skin: No acute rashes or ulcers - incision sit on lower back does not display evidence of infection and appears to be healing well. Extremities: No clubbing, cyanosis, edema Results & Data Vital Signs (Past 12 Hours) Vital Signs Temp Pulse Pulse Resp BP Pulse Ox 08/15/18 18:51 93 H 08/15/18 18:37 98.6 F 99 H 18 152/84 H 93 PG Care Time/CCT Total # of Minutes Spent Total Time Spent with Patient: Total time spent is greater than 50% in coordination of care (as documented) at patient's floor/unit and/or counseling patient:
[2018-08-15] MEDS ORDERED: VANCOMYCIN CONSULT ACTIVE PRN (19:55)
[2018-08-15] MEDS ORDERED: VANCOMYCIN HCL 1,000 MG in SODIUM CHLORIDE 0.9% 250 ML IV SCH (20:00)
[2018-08-15] MEDS ORDERED: cefTRIAXone SODIUM 1,000 MG in DEXTROSE 5% 50 ML IV SCH (20:00)
[2018-08-15] MEDS ORDERED: VANCOMYCIN HCL 2,500 MG in SODIUM CHLORIDE 0.9% 500 ML IV STA (20:11)
[2018-08-15] MEDS ORDERED: GADOBUTROL 65ML VIAL IV PRN (20:26)
--- NOTE | 2018-08-15 20:43 | Magnetic Resonance Report ---
MR lumbar spine wo/w con CLINICAL HISTORY: 68 years-old Female presenting with abscess, history of surgery on the lumbar spine on 08/12/2018, severe low back pain, difficulty lying flat, fever, altered mental status, unable to w alk. TECHNIQUE: Multisequence, multiplanar MR imaging of the lumbar spine was performed before and after t he administration of intravenous contrast. IV contrast: 11 mL of Gadavist. COMPARISON: Outside lumbar spine from 06/26/2018. FINDINGS: Localizer images: Unremarkable. Posterior bilateral transpedicular screw and leland fixation of L2-3. The maximum he defect of L2. Infer ior endplate concavity of L1 is unchanged from prior. Vertebral bodies maintain normal height, alignm ent, and bone marrow signal intensity allowing for regional susceptibility artifact arising from the orthopedic hardware. Intervertebral discs demonstrate mild diffuse desiccation. Moderate height loss at L1-2 with a disc osteophyte complex. Additional multilevel degenerative changes further detailed b elow: L1-2: Disc osteophyte complex and epidural lipomatosis results in circumferential narrowing of the th ecal sac. Trace if any residual CSF signal intensity. This is similar to prior exam. No significant n eural foraminal narrowing. L2-3: Posterior decompression with laminectomy. Moderate effacement of the ventral thecal sac seconda ry to slight disc bulge. Facet arthropathy on the left still effaces the left posterior lateral theca l sac. There is extensive nonenhancing heterogeneously T2 hyperintense material in the laminectomy be d and epidural space at this level. This results in significant degree of effacement of the posterior thecal sac most prominently on the right (series 6 image 11; series 9 image 11). Mild right neural f oraminal narrowing. L3-4: T2 hypointense, nonenhancing 1 cm collection in the posterior epidural space at the level of L3 resulting in moderate to severe effacement of the posterior thecal sac. This may be contiguous with a larger collection in the laminectomy bed. Trace residual CSF at this level. Slightly more inferiorl y at the true L3-4 level, moderate facet arthropathy and ligamentum flavum thickening evident. Disc b ulge results in moderate effacement of the ventral thecal sac. Moderate circumferential spinal canal narrowing with CSF evident. Mild bilateral neural foraminal narrowing. L4-5: Disc bulge, mild facet arthropathy, and mild ligamentum flavum thickening. Mild effacement of t he ventral thecal sac. Mild bilateral neural foraminal narrowing. L5-S1: Disc osteophyte complex. No significant spinal canal narrowing. Spurring from the facet joints results in moderate to severe neural foraminal narrowing. Spinal cord terminates in good position at L1. The cauda equina does not have a buckled morphology. C auda equina crowding at multiple levels though most severely at L3 as mentioned above. No abnormal en hancement of the nerve roots. Flow voids within the vasculature are preserved. Extensive nonenhanceme nt of the laminectomy bed as mentioned above. The region of nonenhancement measures 10 cm in cranioca udal dimension and has maximal axial dimensions of 6.8 x 2.8 cm. Epidural collection at the level of L3 as mentioned above. Extensive T2 hyperintensity in the operative bed and subcutaneous tissue. IMPRESSION: 1. Large collection in the laminectomy bed, which is heterogeneously T2 hyperintense and nonenhancin g. Sterility cannot be confirmed. This is most worrisome for phlegmonous change/early abscess. This r esults in significant spinal canal narrowing. However, no evidence of cauda equina impingement. No ar achnoiditis. 2. Focal 1 cm collection in the posterior epidural space at the level of L3 resulting in moderate to severe spinal canal narrowing. This is new from prior and also concerning for a focal epidural absce ss. This may be contiguous with the above-mentioned larger collection. 3. Postsurgical changes of L2-3 posterior fusion and laminectomy. 4. Multilevel degenerative changes as mentioned above. The report will be called/faxed according to standard departmental protocol for a critical finding. Electronically signed by: Garrick Vu M.D. 08/15/2018 8:41 PM
[2018-08-15] MEDS: cefTRIAXone SODIUM 2,000 MG in DEXTROSE 5% 50 ML IV SCH (20:47)
[2018-08-15] MEDS: ATORVASTATIN 40 MG TAB PO SCH (20:58)
[2018-08-15] MEDS: GABAPENTIN 800 MG TAB PO SCH (20:59)
[2018-08-15] MEDS: INSULIN ASPART 100 UNITS/ML 3 ML PEN SC SCH (21:03)
[2018-08-15 21:16] LABS: Creatinine Clr Calc Pharmacy 70.9 ml/min; Est GFR (African American) 73.2; Est GFR (Non-African American) 63.1
--- NOTE | 2018-08-15 21:28 | Pharmacy Report ---
Pharmacy Abx Dose Short Note - Date of Service August 15, 2018 - Assessment & Plan A/P Pt's population p'kinetics: t1/2=11, ke=0.063. Pt being started on vancomycin and rocephin for bone and joint infection. Vancomycin 2500mg (23mg/kg) x1 IV, then vancomycin 1250mg (12mg/kg) IV q12. A less than traditional dose has been chosen due to the pt's habitus. Goal trough will be 15-20mcg/mL. Trough ordered for 08/17/18 @0930. Pharmacy will continue to follow and will adjust dose/frequency as necessary. Thank you.
[2018-08-15] MEDS: HYDROmorphone INJ 1 MG/ML SYRINGE IV PRN (22:01)
[2018-08-16] MEDS: LACTATED RINGER'S 1,000 ML IV SCH ×2 (00:26→15:14)
[2018-08-16] MEDS: INSULIN ASPART 100 UNITS/ML 3 ML PEN SC SCH ×5 (01:27→21:11)
[2018-08-16] MEDS: HYDROmorphone INJ 1 MG/ML SYRINGE IV PRN ×3 (03:11→10:26)
[2018-08-16] MEDS: LEVOTHYROXINE SODIUM 125 MCG TABLET PO SCH (05:29)
--- NOTE | 2018-08-16 07:36 | Hospitalist Progress Note ---
Date of Service August 16, 2018 Assessment & Plan (1) Fever and chills: 68 y/o F Hx HTN, HLD, DM II, obese, hypothyroid, lumbar stenosis. She underwent an uncomplicated L2-3 discectomy and fusion 08/12/18. She had been recovering well initially and then had onset of worsening back pain, difficulty walking and fevers. She reports a Tmax of 102 the prior evening. She denies a cough, SOB, N/V/Adeline dysuria. It is not clear if she is have lower extremity weakness or if she is unable to walk due to pain. She presented to [place] initially and was transferred to [facility] as her surgery took place here. Review of labs from [place] demonstrate a normal lactic acid, Anemia with an H b of 8.7 and an elevated ALT and Alk phos. 1) Back pain and fever post-op -'s after, orthopedist is not actively concerned that she has a surgical site infection at this time. She will be placed on Vanc and ceftriaxone in the interim. Narcotics provided PRN. NPO after midnight, IVF. Urine culture needs to be undertaken however MRI from 614 shows 1. Large collection in the laminectomy bed, which is heterogeneously T2 hyperintense and nonenhancing. Sterility cannot be confirmed. This is most worrisome for phlegmonous change/early abscess. This results in significant spinal canal narrowing. However, no evidence of cauda equina impingement. No arachnoiditis. 2. Focal 1 cm collection in the posterior epidural space at the level of L3 resulting in moderate to severe spinal canal narrowing. This is new from prior and also concerning for a focal epidural abscess. This may be contiguous with the above-mentioned larger collection. 2) DM II - placed on a sliding scale 3) HTN -remains on valsartan she has slight elevation of her blood pressure likely related to pain 4) HLD - cont Atorvastatin 5) Hypothyroidism - cont Synthroid 6) LFTs elevated - this may be a post-op elevation. She does not have any GI symptoms at present -LFTs are improved Full code - SCDs Subjective Patient is uncomfortable she is has pain in her back she said no additional fever since presentation she is markedly constipated states she is having difficulty going to the bathroom urinating since she went home but did not have that problem while she is in the hospital. Review of Systems Review of Systems: ROS: well nourished well developed. No double vision blurry vision No problems with speech or swallowing No palpitations, chest pain or pressure No Wheezing or breathing issues No abdominal pain nausea vomiting diarrhea changes in appetite or weight Urinary retention Focal back pain at the surgical site No skin rashes or oral lesions No unusual bruising or bleeding No numbness or loss of strength other than globally weak from her surgery No changes in memory or confusion Physical Exam Physical Exam: The patient appeared uncomfortable in mild to moderate distress. Vital signs as documented. Head exam is unremarkable. normocephalic, atraumatic Neck is without jugular venous distension, thyromegaly, or lymphademopathy Lungs are clear to auscultation and percussion. Cardiac exam reveals Rhythm is regular. First and second heart sounds normal. Abdominal exam reveals normal bowel sounds, no masses, no organomegaly Extremities are nonedematous and both pedal pulses are present Neurologic exam is A&Ox3, no focal deficits, strength is equal bilateral probably 4.5/5 Psychologically seems neither anxious or depressed Skin is warm Dry her back wound does not appear to be actively infected externally Results & Data Vital Signs (Past 12 Hours) Vital Signs Temp Pulse Pulse Resp BP Pulse Ox 08/16/18 00:00 93 H 08/15/18 23:28 36.8 C 96 H 20 138/7 L 94 PG Care Time/CCT Total # of Minutes Spent Total Time Spent with Patient: T
[2018-08-16] MEDS: DULOXETINE HCL 30 MG CAP PO SCH (08:19)
[2018-08-16] MEDS: LANSOPRAZOLE 30 MG SOLTAB PO SCH (08:21)
[2018-08-16] MEDS: GABAPENTIN 800 MG TAB PO SCH ×3 (08:21→21:05)
[2018-08-16] MEDS ORDERED: KETOROLAC TROMETHAMINE 15 MG/ML VIAL IM SCH (09:00)
[2018-08-16] MEDS ORDERED: VALSARTAN 80 MG TAB PO SCH (09:00)
--- NOTE | 2018-08-16 09:15 | Consultation Report ---
DATE OF CONSULTATION: 08/16/2018 CHIEF COMPLAINT: Back pain. HISTORY OF PRESENT ILLNESS: Aure is a delightful, pleasant. I have known her, operated on her approximately 4 days ago, with uneventful lumbar spine surgery on a fairly rigorous case and the patient is quite overweight. In any event, the surgical procedure was quite straightforward, decompression and fusion at the 2-3 level of the lumbar spine. There were no events during the surgical procedure. We did send her home on day 1 postop and I think that might have been too premature, she probably needed to stay a little bit longer. I think her pain has gotten out of control and she presented to [facility] last night when she was transferred in. PHYSICAL EXAMINATION: As of this morning, her blood pressure is stable, temperature stable. Her wound is clean, dry. There is no warmth or erythema. There is some ecchymosis consistent with some bruising. Her MRI was reviewed as well. It is a heterogeneous accumulation. Postop issues, blood accumulation, air, but there is no definitive statement or signs of an abscess. I do not think there is an abscess, it is too early and she does not have any clinical signs thereof. PLAN: We will ice down her spine and place her on some Toradol. She will need some PT. She will need to stay in the hospital and I recommend an inpatient rehab placement. AKSHAT
[2018-08-16] MEDS ORDERED: Nursing to Pharmacy Communication ONE ×2 (09:36→10:17)
[2018-08-16] MEDS: KETOROLAC TROMETHAMINE 15 MG/ML VIAL IV SCH ×3 (09:40→21:21)
[2018-08-16] MEDS: VANCOMYCIN HCL 1,250 MG in SODIUM CHLORIDE 0.9% 250 ML IV SCH ×2 (09:43→22:29)
[2018-08-16] MEDS: cefTRIAXone SODIUM 2,000 MG in DEXTROSE 5% 50 ML IV SCH (19:38)
[2018-08-16] MEDS: HYDROCODONE/ACETAMINOPHEN 10/325 TAB PO PRN (19:54)
[2018-08-16] MEDS: ATORVASTATIN 40 MG TAB PO SCH (21:04)
[2018-08-16] MEDS: POLYETHYLENE (MIRALAX) 17 GM PACK PO SCH (21:04)
[2018-08-17] MEDS ORDERED: ONDANSETRON INJ 2 MG/ML 2 ML VIAL IV STA (02:55)
[2018-08-17] MEDS ORDERED: ONDANSETRON INJ 2 MG/ML 2 ML VIAL IV PRN (02:55)
[2018-08-17] MEDS ORDERED: ONDANSETRON INJ 2 MG/ML 2 ML VIAL ONE (02:59)
[2018-08-17] MEDS: KETOROLAC TROMETHAMINE 15 MG/ML VIAL IV SCH ×4 (04:27→21:27)
[2018-08-17] MEDS: LEVOTHYROXINE SODIUM 125 MCG TABLET PO SCH (06:12)
[2018-08-17] MEDS ORDERED: cloNIDine HCl 0.1 MG TAB PO PRN (07:49)
[2018-08-17] MEDS: HYDROmorphone INJ 1 MG/ML SYRINGE IV PRN ×3 (08:48→21:27)
[2018-08-17] MEDS: INSULIN ASPART 100 UNITS/ML 3 ML PEN SC SCH ×4 (09:02→20:48)
[2018-08-17] MEDS: VALSARTAN 80 MG TAB PO SCH (09:03)
[2018-08-17] MEDS: DULOXETINE HCL 30 MG CAP PO SCH (09:03)
[2018-08-17] MEDS: LANSOPRAZOLE 30 MG SOLTAB PO SCH (09:04)
[2018-08-17] MEDS: GABAPENTIN 800 MG TAB PO SCH ×3 (09:04→20:44)
[2018-08-17] MEDS: POLYETHYLENE (MIRALAX) 17 GM PACK PO SCH ×2 (09:06→20:49)
[2018-08-17] MEDS ORDERED: VANCOMYCIN TROUGH ONE (09:30)
--- NOTE | 2018-08-17 09:36 | Progress Note ---
DATE: 08/17/2018 SUBJECTIVE: She is alert, oriented this morning. She looks stable. OBJECTIVE: Vital signs stable, afebrile. Pressure slightly elevated I think secondary to pain. Wound clean, dry. Moves all extremities. Taking p.o. ASSESSMENT: 1. Status post lumbar spine surgery. 2. Morbid obesity. 3. Other comorbidities. PLAN: We will get her out of bed to chair today. We will keep her Underwood catheter in for another 24 hours. I believe she should be able to get to rehab type placement on Sunday leaving Sunday with another day to get stabilized and hopefully slowly back off some of her medications.
[2018-08-17 10:20] LABS: Basophils # (auto) 0.01 K/uL (0-0.2); Basophils % (auto) 0.1 %; Eosinophils # (auto) 0.16 K/uL (0-0.5); Eosinophils % (auto) 2.3 %; Hematocrit (blood only) 28.9 % (37-47); Hemoglobin 9.1 g/dL (12.0-16.0); Immature Granulocytes # (auto) 0.03 K/uL (0.00-0.02); Immature Granulocytes % (auto) 0.4 %; Lymphocytes # (auto) 0.71 K/uL (1.2-3.4); Lymphocytes % (auto) 10.2 %; Mean Corpuscular Hgb Conc 31.5 g/dL (32-36); Mean Corpuscular Volume 87.6 fL (80-100); Mean Platelet Volume 11.7 fL (7.4-10.4); Monocytes # (auto) 0.62 K/uL (0.11-0.59); Monocytes % (auto) 8.9 %; Neutrophils # (auto) 5.43 K/uL (1.4-6.5); Neutrophils % (auto) 78.1 %; Platelet Count 237 K/uL (130-400); RDW Coefficient of Variation 13.6 % (11.5-14.5); RDW Standard Deviation 43.6 fL (36.4-46.3); White Blood Count 6.96 K/uL (4.8-10.8)
[2018-08-17 10:45] LABS: BUN Creatinine Ratio 22.2 (10-20); Calcium 8.2 mg/dl (8.5-10.1); Creatinine Clr Calc Pharmacy 97.9 ml/min; Est GFR (African American) 103.2; Magnesium 1.8 mg/dl (1.8-2.4); Potassium 4.3 mmol/L (3.5-5.1)
[2018-08-17] MEDS: VANCOMYCIN HCL 1,250 MG in SODIUM CHLORIDE 0.9% 250 ML IV SCH (11:06)
--- NOTE | 2018-08-17 12:50 | Pharmacy Report ---
Pharmacy Abx Dose Short Note - Date of Service August 17, 2018 - Assessment & Plan Assessment 68 year old F receiving vancomycin for treatment of possible surgical site infection Day # 3 of antimicrobial therapy. Plan Vancomycin * Trough level came back therapeutic at 20 mcg/ml (goal 15-20 mcg/ml) - however due to elevated BMI >35 kg/m2 anticipate patient to accumulate vancomycin * Therefore, will adjust to vancomycin 1250 mg iv q 14 hrs to ensure trough remains w/in goal * Scr remains stable, slightly improved more today - CrCl 97 ml/min * Urine culture currently pending at this time. Per provider notes, patient showing improvement hopeful to discharge next couple of days Pharmacy will continue to follow and will adjust dose/frequency as necessary. Thank you.
[2018-08-17] MEDS: HYDROCODONE/ACETAMINOPHEN 10/325 TAB PO PRN (14:28)
--- NOTE | 2018-08-17 15:16 | Hospitalist Progress Note ---
Date of Service August 17, 2018 Assessment & Plan (1) Fever and chills: 68 y/o F Hx HTN, HLD, DM II, obese, hypothyroid, lumbar stenosis. She underwent an uncomplicated L2-3 discectomy and fusion 08/12/18. She had been recovering well initially and then had onset of worsening back pain, difficulty walking and fevers. She reports a Tmax of 102 the prior evening. She denies a cough, SOB, N/V/Adeline dysuria. It is not clear if she is have lower extremity weakness or if she is unable to walk due to pain. She presented to [place] initially and was transferred to [facility] as her surgery took place here. Review of labs from [place] demonstrate a normal lactic acid, Anemia with an H b of 8.7 and an elevated ALT and Alk phos. 1) Back pain and fever post-op -'s after, orthopedist is not actively concerned that she has a surgical site infection at this time. She will be placed on Vanc and ceftriaxone in the interim. Narcotics provided PRN. Urine culture shows no growth MRI from 08/16 impression 1. Large collection in the laminectomy bed, which is heterogeneously T2 hyp erintense and nonenhancing. Sterility cannot be confirmed. This is most worrisome for phlegmonous change/early abscess. This results in significant spinal canal narrowing. However, no evidence of cauda equina impingement. No arachnoiditis. 2. Focal 1 cm collection in the posterior epidural space at the level of L3 resulting in moderate to severe spinal canal narrowing. This is new from prior and also concerning for a focal epidural abscess. This may be contiguous with the above-mentioned larger collection. DM II - placed on a sliding scale reasonable control HTN -remains on valsartan increased dose to 80 from 40 continue to follow with PRN blood pressure control available HLD - cont Atorvastatin with home dosing Hypothyroidism -remains on Synthroid LFTs improved- this may be a post-op elevation. She does not have any GI symptoms at present Constipation will increase cathartic agents Full code - SCDs Subjective Patient has significant discomfort in her back today she is crying. Her blood pressure is up because of her pain. There is no radicular component to her pain the pain is relegated to her side of her back surgery. Initial urinalysis is certainly negative at this point time Review of Systems Review of Systems: ROS: well nourished well developed. In mild to moderate distress No double vision blurry vision No problems with speech or swallowing No palpitations, chest pain or pressure No Wheezing or breathing issues No abdominal pain nausea vomiting diarrhea changes in appetite or weight No burning urine urine frequency or changes in color Persistent back pain at the surgical site without radicular symptoms No skin rashes or oral lesions No unusual bruising or bleeding Persistent focused back pain but no numbness or loss of strength No changes in memory or confusion Physical Exam Physical Exam: The patient appeared in moderate pain has elevated blood pressure associated with it Vital signs as documented. Elevated blood pressure did increase her antihypertensive control Head exam is unremarkable. normocephalic, atraumatic Neck is without jugular venous distension, thyromegaly, or lymphademopathy Lungs are clear to auscultation and percussion. Cardiac exam reveals Rhythm is regular. First and second heart sounds normal. Abdominal exam reveals normal bowel sounds, no masses, no organomegaly Extremities are nonedematous and both pedal pulses are present Neurologic exam is A&Ox3, no focal deficits, strength is equal bilateral no increased pain with straight leg raising pain is focal at the site of her surgery Psychologically seems neither anxious or depressed Skin is warm Dry Results & Data Vital Signs (Past 12 Hours) Vital Signs Temp Pulse Resp BP Pulse Ox 08/17/18 14:55 36.7 C 88 20 171/90 H 97 08/17/18 11:21 100 H 18 167/77 H 96 08/17/18 07:00 37.1 C 99 H 20 181/109 H 97 PG Care Time/CCT Total # of Minutes Spent Total Time Spent with Patient: Total time spent is greater than 50% in coordination of care (as documented) at patient's floor/unit and/or counseling patient:
[2018-08-17] MEDS: ATORVASTATIN 40 MG TAB PO SCH (20:42)
[2018-08-17] MEDS: SENNA 8.6 MG TAB PO SCH (20:49)
[2018-08-17] MEDS: cefTRIAXone SODIUM 2,000 MG in DEXTROSE 5% 50 ML IV SCH (20:49)
[2018-08-18] MEDS ORDERED: VANCOMYCIN HCL 1,250 MG in SODIUM CHLORIDE 0.9% 250 ML IV SCH (02:00)
[2018-08-18] MEDS: KETOROLAC TROMETHAMINE 15 MG/ML VIAL IV SCH ×4 (03:57→20:59)
[2018-08-18] MEDS: LEVOTHYROXINE SODIUM 125 MCG TABLET PO SCH (05:35)
[2018-08-18] MEDS: POLYETHYLENE (MIRALAX) 17 GM PACK PO SCH ×2 (05:35→20:03)
[2018-08-18] MEDS: HYDROCODONE/ACETAMINOPHEN 10/325 TAB PO PRN ×3 (05:35→20:01)
[2018-08-18] MEDS: LANSOPRAZOLE 30 MG SOLTAB PO SCH (08:09)
[2018-08-18] MEDS: INSULIN ASPART 100 UNITS/ML 3 ML PEN SC SCH ×4 (08:09→20:59)
[2018-08-18] MEDS: GABAPENTIN 800 MG TAB PO SCH ×3 (08:10→20:02)
[2018-08-18] MEDS: DULOXETINE HCL 30 MG CAP PO SCH (08:10)
[2018-08-18] MEDS: VALSARTAN 80 MG TAB PO SCH (08:10)
[2018-08-18] MEDS ORDERED: AMLODIPINE BESYLATE 5 MG TAB PO ONE (10:45)
--- NOTE | 2018-08-18 13:37 | Hospitalist Progress Note ---
Date of Service August 18, 2018 Assessment & Plan (1) Fever and chills: 68 y/o F Hx HTN, HLD, DM II, obese, hypothyroid, lumbar stenosis. She underwent an uncomplicated L2-3 discectomy and fusion 08/12/18. She had been recovering well initially and then had onset of worsening back pain, difficulty walking and fevers. She reports a Tmax of 102 the prior evening. She denies a cough, SOB, N/V/Adeline dysuria. It is not clear if she is have lower extremity weakness or if she is unable to walk due to pain. She presented to [place] initially and was transferred to [facility] as her surgery took place here. Review of labs from [place] demonstrate a normal lactic acid, Anemia with an H b of 8.7 and an elevated ALT and Alk phos. 1) Back pain and fever post-op -'s after, orthopedist is not actively concerned that she has a surgical site infection at this time. She was initially placed on Vanc and ceftriaxone She has refusd blood cultures, Urine culture shows no growth antibiotics stopped 08/18 MRI from 08/16 impression 1. Large collection in the laminectomy bed, which is heterogeneously T2 hyperintense and nonenhancing. Sterility cannot be confirmed. This is most worrisome for phlegmonous change/early abscess. This results in significant spinal canal narrowing. However, no evidence of cauda equina impingement. No arachnoiditis. 2. Focal 1 cm collection in the posterior epidural space at the level of L3 resulting in moderate to severe spinal canal narrowing. This is new from prior and also concerning for a focal epidural abscess. This may be contiguous with the above-mentioned larger collection. DM II - placed on a sliding scale remains with reasonable control HTN -remains on valsartan increased dose to 80 from 40 bp still up will have one dose of amlodipine and if she has some favorable results will consider daily dose HLD - cont Atorvastatin with home dosing Hypothyroidism -remains on Synthroid LFTs improved- this may be a post-op elevation. She does not have any GI symptoms at present Constipation will increase cathartic agents Full code - SCDs Subjective The patient's pain is improved today she did ambulate the hallway somewhat she is been refusing blood work including blood cultures for 2 days. Because of no defined source of infection and the fact that orthopedics does not believe the wound is infected will discontinue antibiotic today Review of Systems Review of Systems: ROS: well nourished well developed. No double vision blurry vision No problems with speech or swallowing No palpitations, chest pain or pressure No Wheezing or breathing issues No abdominal pain nausea vomiting diarrhea changes in appetite or weight No burning urine urine frequency or changes in color No focal joint pain or muscle pain No skin rashes or oral lesions No unusual bruising or bleeding Patient has persistent luis-incisional back pain without fluctuance No changes in memory or confusion Physical Exam Physical Exam: The patient appeared well nourished and only in mild distress today Vital signs as documented. Head exam is unremarkable. normocephalic, atraumatic Neck is without jugular venous distension, thyromegaly, or lymphademopathy Lungs are clear to auscultation and percussion. Cardiac exam reveals Rhythm is regular. First and second heart sounds normal. Abdominal exam reveals normal bowel sounds, no masses, no organomegaly Examination of her back only reveals mild luis-incisional tenderness no fluctuance no warmth Extremities are nonedematous and both pedal pulses are present Neurologic exam is A&Ox3, no focal deficits, strength is equal bilateral Psychologically seems neither anxious or depressed Skin is warm / Dry there is a dressing on the wound site Results & Data Vital Signs (Past 12 Hours) Vital Signs Temp Pulse Resp BP Pulse Ox 08/18/18 07:56 36.7 C 90 16 172/89 H 100 PG Care Time/CCT Total # of Minutes Spent Total Time Spent with Patient: Total time spent is greater than 50% in coordination of care (as documented) at patient's floor/unit and/or counseling patient:
[2018-08-18] MEDS: ATORVASTATIN 40 MG TAB PO SCH (20:02)
[2018-08-18] MEDS: SENNA 8.6 MG TAB PO SCH (20:03)
[2018-08-18] MEDS: TEMAZEPAM 15 MG CAPSULE PO PRN (23:54)
[2018-08-19] MEDS: KETOROLAC TROMETHAMINE 15 MG/ML VIAL IV SCH ×4 (04:45→21:48)
[2018-08-19] MEDS: LEVOTHYROXINE SODIUM 125 MCG TABLET PO SCH (04:55)
[2018-08-19] MEDS: HYDROCODONE/ACETAMINOPHEN 10/325 TAB PO PRN ×3 (07:56→19:15)
[2018-08-19] MEDS: LANSOPRAZOLE 30 MG SOLTAB PO SCH (07:56)
[2018-08-19] MEDS: VALSARTAN 80 MG TAB PO SCH (07:56)
[2018-08-19] MEDS: GABAPENTIN 800 MG TAB PO SCH ×3 (07:56→21:48)
[2018-08-19] MEDS: DULOXETINE HCL 30 MG CAP PO SCH (07:56)
[2018-08-19] MEDS: INSULIN ASPART 100 UNITS/ML 3 ML PEN SC SCH ×4 (08:52→21:51)
[2018-08-19] MEDS: POLYETHYLENE (MIRALAX) 17 GM PACK PO SCH ×2 (08:52→21:48)
--- NOTE | 2018-08-19 16:58 | Progress Note ---
DATE: 08/19/2018 Aure is seen on rounds here this morning, 19 of August. She is improved, stable. Pain controlled. Ambulatory, taking p.o. Wound clean, dry and afebrile. She will be discharged to rehab and/or skilled nursing today. Follow up in the office in approximately 2 weeks.
[2018-08-19] MEDS: ATORVASTATIN 40 MG TAB PO SCH (21:48)
[2018-08-19] MEDS: SENNA 8.6 MG TAB PO SCH (21:48)
[2018-08-19] MEDS: TEMAZEPAM 15 MG CAPSULE PO PRN (21:48)
--- NOTE | 2018-08-19 23:16 | Hospitalist Progress Note ---
Date of Service August 19, 2018 Assessment & Plan (1) Fever and chills: 68 y/o F Hx HTN, HLD, DM II, obese, hypothyroid, lumbar stenosis. She underwent an uncomplicated L2-3 discectomy and fusion 08/12/18. She had been recovering well initially and then had onset of worsening back pain, difficulty walking and fevers. She reports a Tmax of 102 the prior evening. She denies a cough, SOB, N/V/Adeline dysuria. It is not clear if she is have lower extremity weakness or if she is unable to walk due to pain. She presented to [place] initially and was transferred to [facility] as her surgery took place here. Review of labs from [place] demonstrate a normal lactic acid, Anemia with an H b of 8.7 and an elevated ALT and Alk phos. 1) Back pain and fever post-op -'s after, orthopedist is not actively concerned that she has a surgical site infection at this time. She was initially placed on Vanc and ceftriaxone She has refusd blood cultures, Urine culture shows no growth antibiotics stopped 08/18 MRI from 08/16 impression 1. Large collection in the laminectomy bed, which is heterogeneously T2 hyperintense and nonenhancing. Sterility cannot be confirmed. This is most worrisome for phlegmonous change/early abscess. This results in significant spinal canal narrowing. However, no evidence of cauda equina impingement. No arachnoiditis. 2. Focal 1 cm collection in the posterior epidural space at the level of L3 resulting in moderate to severe spinal canal narrowing. This is new from prior and also concerning for a focal epidural abscess. This may be contiguous with the above-mentioned larger collection. As noted above: ortho does not believe this to be infectious. Antibiotics are held. DM II - placed on a sliding scale remains with reasonable control HTN -remains on valsartan increased dose to 80 from 40 bp still up will have one dose of amlodipine and if she has some favorable results will consider daily dose HLD - cont Atorvastatin with home dosing Hypothyroidism -remains on Synthroid LFTs improved- this may be a post-op elevation. She does not have any GI symptoms at present Constipation will increase cathartic agents (2) Hypoxia: Patient is having a non productive cough and requires oxygen. Likely atelectasis. Patient does have incentive spirometry. Will consider chest x-ray in AM. May reorder blood work. Spent 35 minutes on management of patient Full code - SCDs . Subjective Patient reports no significant improvement. She continues to have back pain. She states she also reports requiring oxygen here, in which at home she does not use oxygen. She also notes a non productive cough. Patient denies any fever or chills. Patient reports she refuses labs due to be a difficult stick. Review of Systems Review of Systems: ROS: well nourished well developed. No double vision blurry vision No problems with speech or swallowing No palpitations, chest pain or pressure No Wheezing or breathing issues No abdominal pain nausea vomiting diarrhea changes in appetite or weight No burning urine urine frequency or changes in color No focal joint pain or muscle pain No skin rashes or oral lesions No unusual bruising or bleeding Patient has persistent luis-incisional back pain without fluctuance No changes in memory or confusion Physical Exam Physical Exam: The patient appeared well nourished and only in mild distress today Vital signs as documented. Head exam is unremarkable. normocephalic, atraumatic Neck is without jugular venous distension, thyromegaly, or lymphademopathy Lungs are clear to auscultation , decreased breath sounds on bases. Cardiac exam reveals Rhythm is regular. First and second heart sounds normal. Abdominal exam reveals normal bowel sounds, no masses, no organomegaly Examination of her back only reveals mild luis-incisional tenderness no fluctuance no warmth Extremities are nonedematous and both pedal pulses are present Neurologic exam is A&Ox3, no focal deficits, strength is equal bilateral Psychologically seems neither anxious or depressed Skin is warm / Dry there is a dressing on the wound site Results & Data Vital Signs (Past 12 Hours) Vital Signs Temp Pulse Pulse Resp BP Pulse Ox 08/19/18 21:45 81 180/79 H 08/19/18 19:26 162/84 H 08/19/18 17:00 182/90 H 08/19/18 15:45 186/101 H 08/19/18 15:21 36.8 C 90 17 180/88 H 94 PG Care Time/CCT Total # of Minutes Spent Total Time Spent with Patient: Total time spent is greater than 50% in coordination of care (as documented) at patient's floor/unit and/or counseling patient:
[2018-08-19] MEDS: HydrALAZINE HCL 20 MG/ML VIAL IV PRN (23:26)
[2018-08-20] MEDS: HYDROCODONE/ACETAMINOPHEN 10/325 TAB PO PRN ×3 (01:50→15:57)
[2018-08-20] MEDS: KETOROLAC TROMETHAMINE 15 MG/ML VIAL IV SCH ×4 (04:58→21:00)
[2018-08-20] MEDS: LEVOTHYROXINE SODIUM 125 MCG TABLET PO SCH (04:59)
[2018-08-20] MEDS: DULOXETINE HCL 30 MG CAP PO SCH (08:25)
[2018-08-20] MEDS: LANSOPRAZOLE 30 MG SOLTAB PO SCH (08:25)
[2018-08-20] MEDS: GABAPENTIN 800 MG TAB PO SCH ×3 (08:25→20:58)
[2018-08-20] MEDS: VALSARTAN 80 MG TAB PO SCH (08:25)
[2018-08-20] MEDS: POLYETHYLENE (MIRALAX) 17 GM PACK PO SCH ×2 (08:27→20:59)
[2018-08-20] MEDS: INSULIN ASPART 100 UNITS/ML 3 ML PEN SC SCH ×4 (08:29→21:02)
--- NOTE | 2018-08-20 10:22 | XRay Report ---
XR chest 2V routine CLINICAL HISTORY: shortness of breath/ cough COMPARISON STUDY: Chest radiograph July 12, 2018. FINDINGS: Lumbar spine fusion hardware is partially imaged. There are cholecystectomy clips. There is no pneumothorax. A moderate to large right pleural effusion is noted. There is a trace left pleural effusion. There is pulmonary vascular congestion without overt pulmonary edema. Cardiomegaly is noted . IMPRESSION: 1. Moderate to large right pleural effusion. Trace left pleural effusion. 2. Pulmonary vascular congestion. Electronically signed by: Onel Barnett M.D. 08/20/2018 10:20 AM
[2018-08-20 10:30] LABS: Albumin Level 2.8 gm/dl (3.4-5.0); BUN Creatinine Ratio 13.9 (10-20); C Reactive Protein 4.29 mg/dl (0-0.29); Calcium 9.1 mg/dl (8.5-10.1); Creatinine Clr Calc Pharmacy 83.5 ml/min; Est GFR (African American) 85.2; Est GFR (Non-African American) 73.5; Potassium 4.2 mmol/L (3.5-5.1)
[2018-08-20 10:33] LABS: Albumin Globulin Ratio 0.7 (0.9-2); Bilirubin,Total 0.6 mg/dl (0.2-1); Globulin 3.8 gm/dl (2.5-4.0); Total Protein 6.6 gm/dl (6.4-8.2)
[2018-08-20 10:56] LABS: Basophils # (auto) 0.02 K/uL (0-0.2); Basophils % (auto) 0.4 %; Eosinophils # (auto) 0.26 K/uL (0-0.5); Hematocrit (blood only) 31.6 % (37-47); Hemoglobin 9.8 g/dL (12.0-16.0); Immature Granulocytes # (auto) 0.03 K/uL (0.00-0.02); Immature Granulocytes % (auto) 0.6 %; Lymphocytes # (auto) 0.98 K/uL (1.2-3.4); Mean Corpuscular Volume 88.5 fL (80-100); Mean Platelet Volume 10.8 fL (7.4-10.4); Monocytes # (auto) 0.51 K/uL (0.11-0.59); Monocytes % (auto) 9.9 %; Neutrophils # (auto) 3.36 K/uL (1.4-6.5); Neutrophils % (auto) 65.1 %; Platelet Count 365 K/uL (130-400); RDW Standard Deviation 45.4 fL (36.4-46.3); Red Blood Count 3.57 M/uL (4.2-5.4); White Blood Count 5.16 K/uL (4.8-10.8)
[2018-08-20] MEDS ORDERED: FUROSEMIDE 80 MG in SYRINGE 0 ML IV ONE (16:02)
[2018-08-20] MEDS ORDERED: FUROSEMIDE 60 MG in SYRINGE 0 ML IV STA (16:05)
[2018-08-20] MEDS: ATORVASTATIN 40 MG TAB PO SCH (20:58)
[2018-08-20] MEDS: SENNA 8.6 MG TAB PO SCH (21:01)
[2018-08-20] MEDS: TEMAZEPAM 15 MG CAPSULE PO PRN (21:09)
--- NOTE | 2018-08-20 22:58 | Hospitalist Progress Note ---
Date of Service August 20, 2018 Assessment & Plan (1) Fever and chills: 68 y/o F Hx HTN, HLD, DM II, obese, hypothyroid, lumbar stenosis. She underwent an uncomplicated L2-3 discectomy and fusion 08/12/18. She had been recovering well initially and then had onset of worsening back pain, difficulty walking and fevers. She reports a Tmax of 102 the prior evening. She denies a cough, SOB, N/V/Adeline dysuria. It is not clear if she is have lower extremity weakness or if she is unable to walk due to pain. She presented to [place] initially and was transferred to [facility] as her surgery took place here. Review of labs from [place] demonstrate a normal lactic acid, Anemia with an H b of 8.7 and an elevated ALT and Alk phos. 1) Back pain and fever post-op -'s after, orthopedist is not actively concerned that she has a surgical site infection at this time. She was initially placed on Vanc and ceftriaxone She has refusd blood cultures, Urine culture shows no growth antibiotics stopped 08/18. MRI from 08/16 impression 1. Large collection in the laminectomy bed, which is heterogeneously T2 hyperintense and nonenhancing. Sterility cannot be confirmed. This is most worrisome for phlegmonous change/early abscess. This results in significant spinal canal narrowing. However, no evidence of cauda equina impingement. No arachnoiditis. 2. Focal 1 cm collection in the posterior epidural space at the level of L3 resulting in moderate to severe spinal canal narrowing. This is new from prior and also concerning for a focal epidural abscess. This may be contiguous with the above-mentioned larger collection. As noted above: ortho does not believe this to be infectious. Antibiotics are held. Will hold dscharge as patient remains on oxygen. She normally is not on oxygen at home. Imaging showing bilateral signs of pleural effusion. Will consult thoracic surgery and monitor. DM II - placed on a sliding scale remains with reasonable control HTN -remains on valsartan increased dose to 80 from 40 bp still up will have one dose of amlodipine and if she has some favorable results will consider daily dose HLD - cont Atorvastatin with home dosing Hypothyroidism -remains on Synthroid LFTs improved- this may be a post-op elevation. She does not have any GI symp toms at present Constipation will increase cathartic agents (2) Hypoxia: Patient is having a non productive cough and requires oxygen. Likely atelectasis. Patient does have incentive spirometry. X-RAY showing signs of congetsion. Will consult thoracic surgery. Will place on lasix and monitor. Spent 35 minutes on management of patient Full code - SCDs . Subjective Patient reports no significant improvement. She continues to have back pain. She states she also reports requiring oxygen here, in which at home she does not use oxygen. She also notes a non productive cough. Patient denies any fever or chills. Review of Systems Review of Systems: ROS: well nourished well developed. No double vision blurry vision No problems with speech or swallowing No palpitations, chest pain or pressure No Wheezing or breathing issues No abdominal pain nausea vomiting diarrhea changes in appetite or weight No burning urine urine frequency or changes in color No focal joint pain or muscle pain No skin rashes or oral lesions No unusual bruising or bleeding Patient has persistent luis-incisional back pain without fluctuance No changes in memory or confusion Physical Exam Physical Exam: The patient appeared well nourished and only in mild distress today Vital signs as documented. Head exam is unremarkable. normocephalic, atraumatic Neck is without jugular venous distension, thyromegaly, or lymphademopathy Lungs are clear to auscultation , decreased breath sounds on bases. Cardiac exam reveals Rhythm is regular. First and second heart sounds normal. Abdominal exam reveals normal bowel sounds, no masses, no organomegaly Examination of her back only reveals mild luis-incisional tenderness no fluctuance no warmth Extremities are nonedematous and both pedal pulses are present Neurologic exam is A&Ox3, no focal deficits, strength is equal bilateral Psychologically seems neither anxious or depressed Skin is warm / Dry there is a dressing on the wound site Results & Data Vital Signs (Past 12 Hours) Vital Signs Temp Pulse Pulse Resp BP Pulse Ox 08/20/18 22:39 36.9 C 98 H 18 176/95 H 97 08/20/18 19:39 78 179/74 H 08/20/18 15:03 36.7 C 75 16 181/99 H 100 08/20/18 12:31 96 PG Care Time/CCT Total # of Minutes Spent Total Time Spent with Patient: Total time spent is greater than 50% in coordination of care (as documented) at patient's floor/unit and/or counseling patient:
[2018-08-21] MEDS: KETOROLAC TROMETHAMINE 15 MG/ML VIAL IV SCH (03:32)
[2018-08-21] MEDS: LEVOTHYROXINE SODIUM 125 MCG TABLET PO SCH (05:36)
[2018-08-21] MEDS: HYDROCODONE/ACETAMINOPHEN 10/325 TAB PO PRN ×3 (05:50→18:57)
--- NOTE | 2018-08-21 07:50 | CT Scan Report ---
CT chest wo con CT DOSE: 954.81 mGy.cm HISTORY: Perfusion effusion TECHNIQUE: Multiaxial CT images of the chest were performed without contrast. A dose lowering techni que was utilized adhering to the principles of ALARA. COMPARISON: Chest series 08/20/2018 FINDINGS: Small to moderate right-sided pleural effusion. Atelectatic and or volume type loss changes right lower lobe. No evidence for well-defined mass or loculated component based on nonenhanced scan. No significant mediastinal or hilar adenopathy several surgical clips identified overlying the high r ight axilla. Limited evaluation the upper abdomen appears unremarkable postcholecystectomy. IMPRESSION: 1. Right pleural effusion. 2. Atelectatic and consolidative change components of the inferior right lower lobe. 3. Trace pleural effusion versus pleural thickening left lung base. 4. No significant adenopathy within limitations of nonenhanced scan. The above report was generated using voice recognition software. It may contain grammatical, syntax or spelling errors. Electronically signed by: Wilian Geronimo M.D. 08/21/2018 7:49 AM
[2018-08-21] MEDS: VALSARTAN 80 MG TAB PO SCH (08:38)
[2018-08-21] MEDS: LANSOPRAZOLE 30 MG SOLTAB PO SCH (08:38)
[2018-08-21] MEDS: GABAPENTIN 800 MG TAB PO SCH ×3 (08:38→20:09)
[2018-08-21] MEDS: DULOXETINE HCL 30 MG CAP PO SCH (08:39)
[2018-08-21] MEDS: INSULIN ASPART 100 UNITS/ML 3 ML PEN SC SCH ×4 (08:39→20:12)
[2018-08-21] MEDS: POLYETHYLENE (MIRALAX) 17 GM PACK PO SCH ×2 (08:40→20:08)
[2018-08-21] MEDS: HYDROmorphone INJ 1 MG/ML SYRINGE IV PRN (10:52)
[2018-08-21] MEDS ORDERED: AZITHROMYCIN 250 MG TAB PO ONE (11:11)
[2018-08-21] MEDS ORDERED: predniSONE 20 MG TAB PO STA (11:12)
[2018-08-21] MEDS ORDERED: PHARMACY GLYCEMIC MGMT CONSULT PRN (11:27)
[2018-08-21] MEDS ORDERED: INSULIN HUMAN NPH SC ONE (12:00)
[2018-08-21] MEDS: cefTRIAXone SODIUM 2,000 MG in DEXTROSE 5% 70 ML IV SCH (12:09)
--- NOTE | 2018-08-21 12:27 | Pharmacy Report ---
Glycemic Control Consultation - Date of Service August 21, 2018 - Scope Scope: Glycemic Pharmacist consulted by Dr Valderrama on 08-21 for glycemic control and to write orders per [facility] inpatient glycemic control protocol - Objective Weight: 116 kg Accuchecks BSG (last 24hrs): 08/20/18 08/20/18 08/21/18 17:28 20:25 08:23 POC Glucose 179 H 250 H 221 H - Recent Pertinent Medications Outpatient Anti-diabetic Regimen: * glipizide 10 mg Qam, metformin 750 mg BID, Januvia 100 Qam, pioglitazone 45 daily * A1c = 8.1 % [08-13-18] The patient is currently receiving: * Basal insulin: none ordered by provider * Correctional Insulin: Novolog Correction per scale ACHS Goal Range: Low 120 mg/dL - High 160 mg/dL Correction Factor: 40 mg/dL/unit * Prandial insulin: Per carb ratio of 1 unit per 0 grams CHO consumed Risk Factors for Insulin Resistance: * Steroids: 40 prednisone ordered x 1 today * Infection: possible surgical site infection/pulmonary infection * Diet: T2DM - Assessment & Plan Assessment & Plan: ASSESSMENT: * 68 year old female admitted 08/15 with fever/chills and concern for surgical site infection. Under went lumbar fusion on 08/12 * Had originally been started on broad spectrum abx, but were placed on hold due to resolution of symptoms * Chest CT ordered this morning revealing right pleural effusion - provider ordering rocephin/azithromycin and prednisone * Glycemic consult placed likely due to elevated BSGs - and now starting steroids * Last couple of days BSGs range from 180s - 250s - anticipate steroid induced hyperglycemia * Will tighten CF/CR with steroids and order NPH 30 units x a (~0.4 units/kg AdjBW) - add overnight checks PLAN FOR INPATIENT GLYCEMIC CONTROL: * Pt is maintained on oral antidiabetic agents as an outpatient * Oral agents are not recommended for inpatient use d/t drug interactions, changing PO intake, and difficulty titrating for acute hyper/hypoglycemia. ADA recommends re-initiating outpatient oral agents 1-2 days prior to discharge if/when appropriate if they were held on admission. * Will hold oral agents for admission and utilize SQ basal bolus insulin regimen which is the recommended regimen for inpatient glycemic control. * Will initiate weight based insulin dosing for insulin kandice patient and titrate based on BSG trends. * Basal insulin * NPH 30 x 1 (to be given with prednisone) - will f/u to determine if steroids continued 08/22 * Bolus insulin - tighten * NovoLog per scale ACHS or Q6hrs while NPO * Goal Range: Low 120 mg/dL - High 160 mg/dL * Correction Factor: 15 mg/dL/unit * Nutritional / Prandial insulin per carb ratio of 1 unit per 5 grams CHO consumed * Please note that the plan above was derived based on current level of insulin resistance and hospital stress. These recommendations are appropriate for inpatient admission only. Plan of care upon discharge will need to be reassessed to avoid potential outpatient hypo/hyperglycemia. Thank you.
[2018-08-21] MEDS ORDERED: INSULIN GLARGINE SOLOSTAR 100 UNITS/ML 3 ML PEN SC ONE (12:45)
[2018-08-21] MEDS ORDERED: FUROSEMIDE 40 MG/4 ML VIAL IV STA (13:22)
[2018-08-21] MEDS: LEVALBUTEROL HCL 1.25 MG/3 ML NEB NEB SCH ×2 (14:29→19:17)
[2018-08-21] MEDS: ATORVASTATIN 40 MG TAB PO SCH (20:08)
[2018-08-21] MEDS: SENNA 8.6 MG TAB PO SCH (20:09)
[2018-08-21] MEDS: TEMAZEPAM 15 MG CAPSULE PO PRN (20:15)
--- NOTE | 2018-08-21 22:28 | Hospitalist Progress Note ---
Date of Service August 21, 2018 Assessment & Plan (1) Fever and chills: 68 y/o F Hx HTN, HLD, DM II, obese, hypothyroid, lumbar stenosis. She underwent an uncomplicated L2-3 discectomy and fusion 08/12/18. She had been recovering well initially and then had onset of worsening back pain, difficulty walking and fevers. She reports a Tmax of 102 the prior evening. She denies a cough, SOB, N/V/Adeline dysuria. It is not clear if she is have lower extremity weakness or if she is unable to walk due to pain. She presented to [facility] initially and was transferred to [facility] as her surgery took place here. Review of labs from [facility] demonstrate a normal lactic acid, Anemia with an H b of 8.7 and an elevated ALT and Alk phos. 1) Back pain and fever post-op -'s after, orthopedist is not actively concerned that she has a surgical site infection at this time. She was initially placed on Vanc and ceftriaxone She has refusd blood cultures, Urine culture shows no growth antibiotics stopped 08/18 MRI from 08/16 impression 1. Large collection in the laminectomy bed, which is heterogeneously T2 hyperintense and nonenhancing. Sterility cannot be confirmed. This is most worrisome for phlegmonous change/early abscess. This results in significant spinal canal narrowing. However, no evidence of cauda equina impingement. No arachnoiditis. 2. Focal 1 cm collection in the posterior epidural space at the level of L3 resulting in moderate to severe spinal canal narrowing. This is new from prior and also concerning for a focal epidural abscess. This may be contiguous with the above-mentioned larger collection. As noted above: ortho does not believe this to be infectious. DM II - placed on a sliding scale remains with reasonable control HTN -remains on valsartan. BP appears controlled. HLD - cont Atorvastatin with home dosing Hypothyroidism -remains on Synthroid LFTs improved- this may be a post-op elevation. She does not have any GI symptoms at present Constipation will increase cathartic agents (2) Hypoxia: Patient continues to require oxygen. Discussed with thoracic surgeon. No need for thoracocenthesis. Patient not improving. Concern over possible infectious process. Will place on azithromycin and will restart ceftriaxone. Full code - SCDs . Subjective Patient reports no new symptoms today. She continues to have back pain and continues to require oxygen via nasal cannula. Review of Systems Review of Systems: ROS: well nourished well developed. No double vision blurry vision No problems with speech or swallowing No palpitations, chest pain or pressure No Wheezing or breathing issues No abdominal pain nausea vomiting diarrhea changes in appetite or weight No burning urine urine frequency or changes in color No focal joint pain or muscle pain No skin rashes or oral lesions No unusual bruising or bleeding Patient has persistent luis-incisional back pain without fluctuance No changes in memory or confusion Physical Exam Physical Exam: The patient appeared well nourished and only in mild distress today Vital signs as documented. Head exam is unremarkable. normocephalic, atraumatic Neck is without jugular venous distension, thyromegaly, or lymphademopathy Lungs are clear to auscultation , decreased breath sounds on bases. Cardiac exam reveals Rhythm is regular. First and second heart sounds normal. Abdominal exam reveals normal bowel sounds, no masses, no organomegaly Examination of her back only reveals mild luis-incisional tenderness no fluctuance no warmth Extremities are nonedematous and both pedal pulses are present Neurologic exam is A&Ox3, no focal deficits, strength is equal bilateral Psychologically seems neither anxious or depressed Skin is warm / Dry there is a dressing on the wound site Results & Data Vital Signs (Past 12 Hours) Vital Signs Temp Pulse Resp BP Pulse Ox 08/21/18 19:17 76 16 97 08/21/18 15:05 36.6 C 73 18 153/76 H 91 08/21/18 14:31 88 18 96 PG Care Time/CCT Total # of Minutes Spent Total Time Spent with Patient: Total time spent is greater than 50% in coordination of care (as documented) at patient's floor/unit and/or counseling patient:
--- NOTE | 2018-08-21 23:29 | Consultation Report ---
DATE OF CONSULTATION: 08/21/2018 REASON FOR CONSULTATION: Right pleural effusion. HISTORY OF PRESENT ILLNESS: Aure German is a very nice 68-year-old who actually was born in [place], but who lives here in [place] now. The patient underwent an uncomplicated L2-L3 discectomy by Dr. Melo Sapp on 08/12/2018 and did well initially but went home and had some back pain with difficulty walking but mostly became quite confused. She had a fever of 102 and some dysuria. She was a bit anemic with a hemoglobin of 8.7. I was asked to see her because the chest x-ray showed a right pleural effusion. The patient was placed on antibiotics. I was asked to see her to address this pleural effusion to see if anything else should be done. PAST MEDICAL HISTORY: 1. Markedly symptomatic lumbar stenosis. 2. Hypothyroidism. 3. Obesity. 4. Hypertension. 5. Hyperlipidemia. 6. Adult-onset diabetes. 7. Remote history of cigarette smoking. 8. History of breast cancer. PAST SURGICAL HISTORY: 1. 2, para 2. 2. x2. 3. Tonsillectomy. 4. Hysterectomy. 5. Recent lumbar discectomy with fusion. 6. Bilateral rotator cuff surgery. 7. Right mastectomy with reconstruction. MEDICATIONS: (As an outpatient), 1. Januvia. 2. Gabapentin. 3. Duloxetine. 4. Glipizide. 5. Atorvastatin. 6. Metformin. 7. Hydrocodone/acetaminophen. 8. Temazepam. 9. Valsartan. 10. Pioglitazone. 11. Synthroid. 12. Prevacid. ALLERGIES: 1. TRAZODONE. 2. ZOLOFT. 3. CELEXA, ALL CAUSE GASTROINTESTINAL UPSET. 4. ROXICODONE CAUSES AGITATION. SOCIAL HISTORY: The patient smoked for 20 years a pack a day, but quit 20 years ago. She does not use alcohol. She lives with her family. She does not drink alcohol. 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 Her children are healthy. REVIEW OF SYSTEMS: The patient has had fever and weakness for the last several days and spiked a fever after surgery. She denies nasal congestion. She has had no night sweats. She is much better over the last few days. She has had no visual or auditory changes. She has had some confusion, but this has resolved. She states that her legs feel better than they did preoperatively. She is able to walk better. She was having significant weakness in her legs preoperatively. She has had no nausea, vomiting, or diarrhea. She does not have a productive cough. She denies palpitations or chest pain. She states her back is "better." PHYSICAL EXAMINATION: GENERAL: This is a heavy woman who stands 5 feet 5 inches tall and weighs almost 240 pounds. She is awake and alert. HEENT: Her extraocular movements are intact. Her sclerae are anicteric. Tongue is midline. NECK: Supple. She has no supraclavicular, cervical, or axillary adenopathy. I detect no carotid bruits or tracheal deviation. She has no neck vein distention. LUNGS: She has markedly decreased breath sounds on the right with some rhonchi, but no wheezing. She has no rales. HEART: She has a regular rate and rhythm of her heart. ABDOMEN: Obese and it is difficult for me to palpate any abnormalities, but she is not tender. Her lumbosacral incision is nicely healed and the sutures are intact. There is no erythema or fluctuance. EXTREMITIES: She has good peripheral pulses. She has trace pedal edema. She has no joint effusions. NEUROLOGIC: She is completely intact. DATA: I reviewed her x-ray and it does indeed appear that she has a pleural effusion. She has some opacification. ASSESSMENT AND PLAN: Right pleural effusion postoperatively. This is in a patient who did not have a pleural effusion or opacity preoperatively. For this reason, I went and got an ultrasound and evaluated her at bedside and I saw very little in the way of fluid. For this reason, I held off doing a thoracentesis. We then sent her down for a CT scan without contrast and then went over this with Dr. Wilian Geronimo. This patient has very little fluid in her chest and I would not offer her a thoracentesis at this point. I also would hold off intervening as the patient is definitely getting better clinically.
[2018-08-22] MEDS: INSULIN ASPART 100 UNITS/ML 3 ML PEN SC SCH ×6 (00:19→21:07)
[2018-08-22] MEDS: HYDROCODONE/ACETAMINOPHEN 10/325 TAB PO PRN ×4 (04:10→21:50)
[2018-08-22] MEDS: LEVALBUTEROL HCL 1.25 MG/3 ML NEB NEB SCH (05:27)
[2018-08-22] MEDS: LEVOTHYROXINE SODIUM 125 MCG TABLET PO SCH (06:02)
[2018-08-22] MEDS: DULOXETINE HCL 30 MG CAP PO SCH (08:14)
[2018-08-22] MEDS: GABAPENTIN 800 MG TAB PO SCH ×3 (08:14→21:09)
[2018-08-22] MEDS: VALSARTAN 80 MG TAB PO SCH (08:15)
[2018-08-22] MEDS: LANSOPRAZOLE 30 MG SOLTAB PO SCH (08:15)
[2018-08-22] MEDS: POLYETHYLENE (MIRALAX) 17 GM PACK PO SCH ×2 (08:15→21:00)
[2018-08-22 08:31] LABS: BUN Creatinine Ratio 19.4 (10-20); Creatinine Clr Calc Pharmacy 79.7 ml/min; Est GFR (African American) 80.5; Est GFR (Non-African American) 69.4; Potassium 3.6 mmol/L (3.5-5.1)
[2018-08-22] MEDS ORDERED: INSULIN GLARGINE SOLOSTAR 100 UNITS/ML 3 ML PEN SC ONE ×2 (09:00→21:00)
--- NOTE | 2018-08-22 09:44 | XRay Report ---
XR chest 2V routine CLINICAL HISTORY: hypoxia COMPARISON STUDY: 08/20/2018 FINDINGS: The cardiac and mediastinal contours remain stable. There is a persistent right pleural eff usion with associated right lower lobe atelectasis/consolidation. There is no failure. The left lung is clear.[ IMPRESSION: Persistent right pleural effusion with associated right lower lobe atelectasis/consolida tion Electronically signed by: Dion Pacheco M.D. 08/22/2018 9:43 AM
[2018-08-22] MEDS: cefTRIAXone SODIUM 2,000 MG in DEXTROSE 5% 70 ML IV SCH (12:17)
--- NOTE | 2018-08-22 13:31 | Pharmacy Report ---
Pharmacy Glycemic Short Note 2 - Date of Service August 22, 2018 - Glycemic Short BSG Results (Last 24 hours): 08/21/18 08/21/18 08/22/18 16:50 20:08 00:10 Glucose POC Glucose 220 H 274 H 288 H 08/22/18 08/22/18 08/22/18 03:57 07:30 08:13 Glucose 198 H POC Glucose 231 H 198 H 08/22/18 12:15 Glucose POC Glucose 154 H OUTPATIENT ANTIDIABETIC REGIMEN: * GLIPIZIDE 10 MG QAM, Metformin 750 BIDM, Januvia 100 mg qam, pioglitazone 45 daily ASSESSMENT: * BSGs ranged from 221-288 yesterday, with 93 units of insulin; 50 basal (lantus + NPH); 43 of bolus * Patient received 40 mg of prednisone yesterday, this was not continued, anticipate needs may slighlty reduce, patient with weight based stress of 3 correction/carb ratio, BSG within range at lunch, will continue for now, may need to loosen with discontinuation of steroids * Fasting this morning 198, after 20 units of lantus and 30 units of NPH- will scale lantus for this evening PLAN FOR INPATIENT GLYCEMIC CONTROL: * Hold outpatient oral diabetes medications * Basal insulin * Lantus 25 units x 1 this AM; PM scale 11 units <110, 15 units 110-200, 20 units >200 * Bolus insulin * NovoLog per scale ACHS or Q6hrs while NPO * Goal Range: Low 120 mg/dL - High 160 mg/dL * Correction Factor: 15 mg/dL/unit * Nutritional / Prandial insulin per carb ratio of 1 unit per 5 grams CHO consumed PLAN FOR DISCHARGE: * to be determined.
[2018-08-22] MEDS: AZITHROMYCIN 250 MG TAB PO SCH (14:00)
[2018-08-22] MEDS ORDERED: VANCOMYCIN CONSULT ACTIVE PRN (15:21)
[2018-08-22] MEDS ORDERED: VANCOMYCIN HCL 2,500 MG in SODIUM CHLORIDE 0.9% 500 ML IV ONE (15:30)
--- NOTE | 2018-08-22 15:37 | Pharmacy Report ---
Pharmacy Abx Dose Short Note - Date of Service August 22, 2018 - Assessment & Plan Assessment 68 year old F receiving vancomycin for treatment of sst vancomycin had been on hold since 08/18, therefore will reload restarted on ceftriaxone + azithromycin for possible pulmonary source 08/21 Plan Vancomycin * Reload with vancomycin 2500 mg (~21 mg/kg) IV * Will start dose at previously ordered 1250 mg q14H, as slightly supratherapeutic on q12H * Trough ordered for 08/24 @ 0830 Pharmacy will continue to follow and will adjust dose/frequency as necessary. Thank you.
[2018-08-22] MEDS: LIDOCAINE 5% 1 PATCH TD SCH (18:23)
[2018-08-22] MEDS: SENNA 8.6 MG TAB PO SCH (21:00)
[2018-08-22] MEDS: ATORVASTATIN 40 MG TAB PO SCH (21:08)
[2018-08-22] MEDS: TEMAZEPAM 15 MG CAPSULE PO PRN (21:50)
[2018-08-22] MEDS: HydrALAZINE HCL 20 MG/ML VIAL IV PRN (23:32)
[2018-08-22] MEDS: HYDROmorphone INJ 1 MG/ML SYRINGE IV PRN (23:33)
[2018-08-23] MEDS: INSULIN ASPART 100 UNITS/ML 3 ML PEN SC SCH ×7 (00:32→20:53)
[2018-08-23] MEDS: HYDROCODONE/ACETAMINOPHEN 10/325 TAB PO PRN ×3 (04:04→17:49)
[2018-08-23] MEDS: HYDROmorphone INJ 1 MG/ML SYRINGE IV PRN (05:23)
[2018-08-23] MEDS: LEVOTHYROXINE SODIUM 125 MCG TABLET PO SCH (05:26)
[2018-08-23] MEDS: VANCOMYCIN HCL 1,250 MG in SODIUM CHLORIDE 0.9% 250 ML IV SCH ×2 (05:27→18:05)
[2018-08-23] MEDS: POLYETHYLENE (MIRALAX) 17 GM PACK PO SCH ×2 (08:35→20:11)
[2018-08-23] MEDS: LIDOCAINE 5% 1 PATCH TD SCH (08:36)
[2018-08-23] MEDS: LANSOPRAZOLE 30 MG SOLTAB PO SCH (08:37)
[2018-08-23] MEDS: AZITHROMYCIN 250 MG TAB PO SCH (08:38)
[2018-08-23] MEDS: VALSARTAN 80 MG TAB PO SCH (08:38)
[2018-08-23] MEDS: DULOXETINE HCL 30 MG CAP PO SCH (08:38)
[2018-08-23] MEDS: GABAPENTIN 800 MG TAB PO SCH ×3 (08:38→20:52)
[2018-08-23] MEDS ORDERED: INSULIN GLARGINE SOLOSTAR 100 UNITS/ML 3 ML PEN SC ONE (09:00)
[2018-08-23 09:05] LABS: Creatinine Clr Calc Pharmacy 90.1 ml/min; Est GFR (African American) 93.4; Est GFR (Non-African American) 80.6
--- NOTE | 2018-08-23 09:45 | Progress Note ---
DATE: 08/23/2018 SUBJECTIVE: I saw the patient on rounds this morning at approximately 8:00. She actually was quite stable and is in the sitting position in the room. She was perfect without any pain whatsoever. No radicular pain. OBJECTIVE: Her wound remains pristine, clean, dry. There are no signs of fluid accumulation in the lumbar spine wound. I agree she does have some slight redness posteriorly on the sacroiliac region. She is afebrile. Vitals stable. Images not indicated. Lab work demonstrates white count 5.6, hemoglobin 9.8. ASSESSMENT: Mechanical back pain, SI joint pain, obesity, some other comorbidities. PLAN: I would not react to this problem. I think she needs pain management for some p.o. medication direction. May that help us out in that regard. I would be careful with narcotics as we ran into problem 10 days ago. I think she needs to get up and ambulatory with physical therapy consult and I think she would be a good rehab candidate.
--- NOTE | 2018-08-23 10:47 | Infectious Disease Consult ---
Date of Consultation August 23, 2018 Assessment & Plan (1) Post-op pain: unclear if MRI findings represent infection vs post op fluid, no cultures done. no f/c since admission, no leukocytosis, ESR mildly elevated but had laminectomy on 08/12 which could lead to mild elevation. no evidence of c ellulitis on my exam today, incision is closed with no drainage, warmth, erythema, tenderness. She has been on several days of IV abx. will order blood cultures but may be negative even in the presence of infection due to several days of IV abx. no clinical evidence on exam to suggest post op cellulitis. Doubt pulm infection, suspect post op effusion. can stop azithro from ID standpoint. will follow blood culture results and continue IV abx for now. History of Present Illness Attending Physician: Jin Valderrama pt seen in initial eval, was admitted with increased back pain. 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 Presented to ER, underwent MRI spine, found to have large collection in laminectomy bed with spinal canal narrowing, and a 1 cm collection at L3 with spinal canal narrowing, concerning for abscess. She was placed on rocephin and vanco in ER, tolerated well. No blood cultures obtained. She has been afebrile since admission. a urine culture was obtained on 08/16 and is negative. abx were stopped on 08/18. She did have ortho eval, did not feel MRI findings reflected infection, she did have removal of disc herniation and repeat laminectomy on 08/20 - tolerated well. No OR cultures obtained, no report of purulent drainage from op note. She had increased pain in back and cxr showed post op effusion, abx were restarted and a ct surgery eval was obtained, ct chest done, no significant fluid found to warrant any procedure. she denies abd pain, no f/c currently, no n/v/d. no cp, sob, cough on my exam today. only complaint is of back pain. most recent labs done on 08/20, wbc 5, ESR 42 She is currently on ctx, vanco and po azithro. tolerating well. She did develop erythema on right hip/flank post op, ID was consulted for cellulitis. now resolved. Allergies Allergy/AdvReac Type Severity Reaction Status Date / Time citalopram [From Celexa] AdvReac Gastrointestinal Verified 08/12/18 06:17 Upset oxycodone [From Roxicodone] AdvReac Agitated Verified 08/15/18 18:44 sertraline [From Zoloft] AdvReac Gastrointestinal Verified 08/12/18 06:17 Upset trazodone AdvReac Gastrointestinal Verified 08/12/18 06:17 Upset Home Medications Home Medications Medication Instructions Recorded Confirmed Type Januvia 100 mg PO QAM 07/09/18 08/12/18 History glipizide 10 mg PO QAM 07/09/18 08/12/18 History lansoprazole [Prevacid] 30 mg PO QAM 07/09/18 08/12/18 History levothyroxine 125 mcg PO QAM 07/09/18 08/12/18 History pioglitazone 45 mg PO QAM 07/09/18 08/12/18 History temazepam 30 mg PO HS PRN 07/09/18 08/12/18 History valsartan 40 mg PO QAM 07/09/18 08/12/18 History metformin 750 mg PO BID 08/12/18 08/12/18 History hydrocodone-acetaminophen 1 tab PO Q6H PRN #40 tab 08/13/18 Rx atorvastatin 80 mg tablet 80 mg PO HS #90 tab 08/14/18 08/14/18 Rx blood sugar diagnostic strips #10 ea 08/14/18 08/14/18 History duloxetine 30 mg capsule,delayed 30 mg PO DAILY #1 cap 08/14/18 08/14/18 History release gabapentin 800 mg tablet 800 mg PO TID #90 tab 08/14/18 08/14/18 History lancets 33 gauge #100 ea 08/14/18 08/14/18 History Patient History Medical History Chronic back pain PT STATES +PAIN RADIATING FROM LOWER BACK INTO RIGHT HIP AND LEG. Degenerative disc disease Diabetes mellitus, type 2 GERD (gastroesophageal reflux disease) History of breast cancer s/p R mastectomy and subsequent reconstruction Hyperlipidemia Hypertension Hypothyroidism Morbid obesity Osteoarthritis Surgical History History of breast surgery RECONTRUCTIVE SURGERY 1 YEAR FOLLOWING MASTECTOMY History of carpal tunnel release B/L History of cataract extraction with lens replacement B/L History of section X2 History of cholecystectomy History of hysterectomy History of repair of rotator cuff B/L SHOULDER History of right mastectomy History of tonsillectomy S/P lumbar spinal fusion 08/12/18 Dr. 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 Beliefs That Will Affect Care: None Current Living Situation: Family Other Information That Helps Us Care for You: No Feels Safe at Home: Yes Safety Concerns: Feels Safe At This Time Smoking Status: Former smoker Tobacco Type: cigarettes Cigarettes Per Day: history of 1 PPD X 20 years, quit 20 years ago, 1998 Do You Dip or Chew Tobacco: No Second Hand Exposure: No Tobacco Cessation Education Requested by Patient: N o Hx Alcohol Use: No Hx Substance Use: No Review of Systems Review of Systems: All systems reviewed & are unremarkable except as noted in HPI & below Physical Exam Constitutional: WD/WN, vitals as above Eyes: PERRL, conjunctivae normal, anicteric sclerae ENMT: external ear and nose normal, oropharynx normal Neck: normal visual inspection Respiratory: normal respiratory effort, lungs clear to auscultation Auscultation: + diminished lung sounds Cardiovascular: RRR, no murmur, no edema Gastrointestinal (Abdomen): normal bowel sounds, soft, nontender, no hepatosplenomegaly Musculoskeletal: no cyanosis or clubbing, extremities motor strength 5/5 Skin: no rashes, warm and dry no erythema, edema surrounding incision, sutures intact, no warmh, no induration, min tenderness. line drawn on right flank/hip area representing area of erythema - no erythema noted on my exam. superficial abrasion noted on hip, no drainage, non tender, no warmth. Psychiatric: A+Ox3, euthymic affect Results & Data Vital Signs (Past 12 Hours) Vital Signs Temp Pulse Pulse Resp BP Pulse Ox 08/23/18 07:10 36.5 C 95 H 18 177/82 H 92 08/23/18 00:27 95 H 148/72 H 08/22/18 23:29 92 H 205/107 H 08/22/18 23:10 36.9 C 92 H 17 207/95 H 96 Laboratory Results Microbiology 08/16/18 14:55 Urine,Indwelling Cath Urine Culture - Final No growth - less than 1,000 colonies/mL.
--- NOTE | 2018-08-23 11:02 | Pharmacy Report ---
Pharmacy Glycemic Short Note 2 - Date of Service August 23, 2018 - Glycemic Short BSG Results (Last 24 hours): 08/22/18 08/22/18 08/22/18 12:15 17:03 20:21 POC Glucose 154 H 193 H 149 H 08/23/18 08/23/18 08/23/18 00:23 03:52 08:12 POC Glucose 151 H 175 H 157 H ASSESSMENT: 08/23 * Patient received total of 68 units of insulin yesterday, of which 40 units were basal insulin * BSGs moderately controlled 154-193-149 mg/dL, appear to improving - continue same CF/CR * Fasting BSG this morning at 157 mg/dL - will continue with same Lantus dose this morning and will add scale on for this evening * Lunchtime trending up to 203 mg/dL - will tighten CR 08/22 * BSGs ranged from 221-288 yesterday, with 93 units of insulin; 50 basal (lantus + NPH); 43 of bolus * Patient received 40 mg of prednisone yesterday, this was not continued, anticipate needs may slighlty reduce, patient with weight based stress of 3 correction/carb ratio, BSG within range at lunch, will continue for now, may need to loosen with discontinuation of steroids * Fasting this morning 198, after 20 units of lantus and 30 units of NPH- will scale lantus for this evening PLAN FOR INPATIENT GLYCEMIC CONTROL: * Hold outpatient oral diabetes medications * Basal insulin * Lantus 25 units x 1 this AM; PM scale 10 units <110, 15 units 110-200, 20 units >200 * Bolus insulin * NovoLog per scale ACHS or Q6hrs while NPO * Goal Range: Low 120 mg/dL - High 160 mg/dL * Correction Factor: 15 mg/dL/unit * Nutritional / Prandial insulin per carb ratio of 1 unit per 4 grams CHO consumed
--- NOTE | 2018-08-23 11:24 | Hospitalist Progress Note ---
Date of Service August 22, 2018 Assessment & Plan (1) Fever and chills: 68 y/o F Hx HTN, HLD, DM II, obese, hypothyroid, lumbar stenosis. She underwent an uncomplicated L2-3 discectomy and fusion 08/12/18. She had been recovering well initially and then had onset of worsening back pain, difficulty walking and fevers. She reports a Tmax of 102 the prior evening. She denies a cough, SOB, N/V/Adeline dysuria. It is not clear if she is have lower extremity weakness or if she is unable to walk due to pain. She presented to [place] initially and was transferred to [facility] as her surgery took place here. Review of labs from [place] demonstrate a normal lactic acid, Anemia with an H b of 8.7 and an elevated ALT and Alk phos. 1) Back pain and fever post-op -'s after, orthopedist is not actively concerned that she has a surgical site infection at this time. She was initially placed on Vanc and ceftriaxone She has refusd blood cultures, Urine culture shows no growth antibiotics stopped 08/18 MRI from 08/16 impression 1. Large collection in the laminectomy bed, which is heterogeneously T2 hyperintense and nonenhancing. Sterility cannot be confirmed. This is most worrisome for phlegmonous change/early abscess. This results in significant spinal canal narrowing. However, no evidence of cauda equina impingement. No arachnoiditis. 2. Focal 1 cm collection in the posterior epidural space at the level of L3 resulting in moderate to severe spinal canal narrowing. This is new from prior and also concerning for a focal epidural abscess. This may be contiguous with the above-mentioned larger collection. As noted above: ortho does not believe this to be infectious. On 08/22: began having an erythematous raised lesion adjacent to the surgical wound. Lesion was delineated. Showed to nursing staff who agree, it is red and raised and tender. Placed on antibiotics. Patient is a hard stick, and unable to obtain cultures. Informed ortho and ID. Consults placed. Cellulitis: As noted above. DM II - placed on a sliding scale remains with reasonable control HTN -remains on valsartan. BP appears controlled. HLD - cont Atorvastatin with home dosing Hypothyroidism -remains on Synthroid LFTs improved- this may be a post-op elevation. She does not have any GI symptoms at present Constipation will increase cathartic agents (2) Hypoxia: Patient continues to require oxygen. Discussed with thoracic surgeon. No need for thoracocenthesis. Patient not improving. Concern over possible infectious process. Will place on azithromycin and will restart ceftriaxone. No improvement on 08/22 Full code - SCDs Spent 45 minutes in management of patient. Subjective Patient is complaining of more pain in her right buttock region. She denies any fever, chills, nausea, vomiting. Review of Systems Review of Systems: All systems reviewed & are unremarkable except as noted in HPI & below Physical Exam Physical Exam: The patient appeared well nourished and only in moderate distress today due to pain. Vital signs as documented. Head exam is unremarkable. normocephalic, atraumatic Neck is without jugular venous distension, thyromegaly, or lymphademopathy Lungs are clear to auscultation , decreased breath sounds on bases. Cardiac exam reveals Rhythm is regular. First and second heart sounds normal. Abdominal exam reveals normal bowel sounds, no masses, no organomegaly Examination of her back only reveals mild luis-incisional tenderness no fluctuance no warmth, on her left buttock, her skin was raised, erythematous, arm and tenrder to palpation. Patient placed on vanco. Extremities are nonedematous and both pedal pulses are present Neurologic exam is A&Ox3, no focal deficits, strength is equal bilateral Psychologically seems neither anxious or depressed Skin is warm / Dry there is a dressing on the wound site Results & Data Vital Signs (Past 12 Hours) Vital Signs Temp Pulse Pulse Resp BP Pulse Ox 08/23/18 07:10 36.5 C 95 H 18 177/82 H 92 08/23/18 00:27 95 H 148/72 H 08/22/18 23:29 92 H 205/107 H PG Care Time/CCT Total # of Minutes Spent Total Time Spent with Patient: Total time spent is greater than 50% in coordination of care (as documented) at patient's floor/unit and/or counseling patient:
[2018-08-23] MEDS: cefTRIAXone SODIUM 2,000 MG in DEXTROSE 5% 70 ML IV SCH (12:01)
[2018-08-23] MEDS: SENNA 8.6 MG TAB PO SCH (20:11)
[2018-08-23] MEDS: INSULIN GLARGINE SOLOSTAR 100 UNITS/ML 3 ML PEN SC SCH (20:52)
[2018-08-23] MEDS: TEMAZEPAM 15 MG CAPSULE PO PRN (20:52)
[2018-08-23] MEDS: ATORVASTATIN 40 MG TAB PO SCH (20:52)
--- NOTE | 2018-08-23 23:07 | Hospitalist Progress Note ---
Date of Service August 23, 2018 Assessment & Plan (1) Fever and chills: 68 y/o F Hx HTN, HLD, DM II, obese, hypothyroid, lumbar stenosis. She underwent an uncomplicated L2-3 discectomy and fusion 08/12/18. She had been recovering well initially and then had onset of worsening back pain, difficulty walking and fevers. She reports a Tmax of 102 the prior evening. She denies a cough, SOB, N/V/Adeline dysuria. It is not clear if she is have lower extremity weakness or if she is unable to walk due to pain. She presented to [place] initially and was transferred to [facility] as her surgery took place here. Review of labs from [place] demonstrate a normal lactic acid, Anemia with an H b of 8.7 and an elevated ALT and Alk phos. 1) Back pain and fever post-op -'s after, orthopedist is not actively concerned that she has a surgical site infection at this time. She was initially placed on Vanc and ceftriaxone She has refusd blood cultures, Urine culture shows no growth antibiotics stopped 08/18 MRI from 08/16 impression 1. Large collection in the laminectomy bed, which is heterogeneously T2 hyperintense and nonenhancing. Sterility cannot be confirmed. This is most worrisome for phlegmonous change/early abscess. This results in significant spinal canal narrowing. However, no evidence of cauda equina impingement. No arachnoiditis. 2. Focal 1 cm collection in the posterior epidural space at the level of L3 resulting in moderate to severe spinal canal narrowing. This is new from prior and also concerning for a focal epidural abscess. This may be contiguous with the above-mentioned larger collection. As noted above: ortho does not believe this to be infectious. On 08/22: began having an erythematous raised lesion adjacent to the surgical wound. Lesion was delineated. Showed to nursing staff who agree, it is red and raised and tender. Placed on antibiotics. Patient is a hard stick, and unable to obtain cultures. Informed ortho and ID. Consults placed. On 08/23 Less erythema is noted. D/W ID. Appears to be infectious, difficult to titrate antibiotics due to lack of culture. Will need long course of antibiotics. will continue to treat. Cellulitis: As noted above. DM II - placed on a sliding scale remains with reasonable control HTN -remains on valsartan. BP appears controlled. HLD - cont Atorvastatin with home dosing Hypothyroidism -remains on Synthroid LFTs improved- this may be a post-op elevation. She does not have any GI symptoms at present Constipation will increase cathartic agents (2) Hypoxia: Patient continues to require oxygen. Discussed with thoracic surgeon. No need for thoracocenthesis. Patient not improving. Concern over possible infectious process. Will place on azithromycin and will restart ceftriaxone. No improvement on 08/23 Full code - SCDs Spent 35 minutes in management of patient. Subjective 68 yo female reports feeling mildly better today. She continues to have pain in her lower back. She reports though that it is less tender as it was yesterday. She denies any fever, chills, nausea, vomiting. Review of Systems Review of Systems: ROS: well nourished well developed. No double vision blurry vision No problems with speech or swallowing No palpitations, chest pain or pressure No Wheezing or breathing issues No abdominal pain nausea vomiting diarrhea changes in appetite or weight No burning urine urine frequency or changes in color No focal joint pain or muscle pain No skin rashes or oral lesions No unusual bruising or bleeding Patient has persistent luis-incisional back pain without fluctuance No changes in memory or confusion Physical Exam Physical Exam: The patient appeared well nourished and only in moderate distress today due to pain. Vital signs as documented. Head exam is unremarkable. normocephalic, atraumatic Neck is without jugular venous distension, thyromegaly, or lymphademopathy Lungs are clear to auscultation , decreased breath sounds on bases. Cardiac exam reveals Rhythm is regular. First and second heart sounds normal. Abdominal exam reveals normal bowel sounds, no masses, no organomegaly Examination of her back only reveals mild luis-incisional tenderness no fluctuance no warmth, on her left buttock, her skin was raised, erythematous, arm and tenrder to palpation. Extremities are nonedematous and both pedal pulses are present Neurologic exam is A&Ox3, no focal deficits, strength is equal bilateral Psychologically seems neither anxious or depressed Skin is warm / Dry there is a dressing on the wound site Results & Data Vital Signs (Past 12 Hours) Vital Signs Temp Pulse Pulse Resp BP BP Pulse Ox 08/23/18 22:53 37.1 C 106 H 16 189/80 H 95 08/23/18 14:49 36.8 C 82 20 162/78 H 99 PG Care Time/CCT Total # of Minutes Spent Total Time Spent with Patient: Total time spent is greater than 50% in coordination of care (as documented) at patient's floor/unit and/or counseling patient:
[2018-08-24] MEDS: HYDROCODONE/ACETAMINOPHEN 10/325 TAB PO PRN ×4 (00:06→17:53)
[2018-08-24] MEDS: LEVOTHYROXINE SODIUM 125 MCG TABLET PO SCH (06:04)
[2018-08-24] MEDS ORDERED: VANCOMYCIN TROUGH ONE (08:30)
[2018-08-24] MEDS: GABAPENTIN 800 MG TAB PO SCH ×3 (08:42→20:24)
[2018-08-24] MEDS: AZITHROMYCIN 250 MG TAB PO SCH (08:42)
[2018-08-24] MEDS: VALSARTAN 80 MG TAB PO SCH (08:42)
[2018-08-24] MEDS: DULOXETINE HCL 30 MG CAP PO SCH (08:43)
[2018-08-24] MEDS: LANSOPRAZOLE 30 MG SOLTAB PO SCH (08:43)
[2018-08-24 08:45] LABS: Basophils # (auto) 0.02 K/uL (0-0.2); Basophils % (auto) 0.2 %; Eosinophils # (auto) 0.37 K/uL (0-0.5); Eosinophils % (auto) 4.5 %; Hematocrit (blood only) 32.9 % (37-47); Hemoglobin 9.7 g/dL (12.0-16.0); Immature Granulocytes # (auto) 0.02 K/uL (0.00-0.02); Immature Granulocytes % (auto) 0.2 %; Lymphocytes # (auto) 1.41 K/uL (1.2-3.4); Lymphocytes % (auto) 17.2 %; Mean Corpuscular Hgb Conc 29.5 g/dL (32-36); Mean Corpuscular Volume 91.1 fL (80-100); Mean Platelet Volume 10.6 fL (7.4-10.4); Monocytes # (auto) 1.09 K/uL (0.11-0.59); Monocytes % (auto) 13.3 %; Neutrophils # (auto) 5.28 K/uL (1.4-6.5); Neutrophils % (auto) 64.6 %; Platelet Count 428 K/uL (130-400); RDW Coefficient of Variation 14.4 % (11.5-14.5); RDW Standard Deviation 48.4 fL (36.4-46.3); Red Blood Count 3.61 M/uL (4.2-5.4); White Blood Count 8.19 K/uL (4.8-10.8)
[2018-08-24] MEDS: HYDROmorphone INJ 1 MG/ML SYRINGE IV PRN ×3 (08:45→21:28)
[2018-08-24] MEDS: POLYETHYLENE (MIRALAX) 17 GM PACK PO SCH ×2 (08:46→20:25)
[2018-08-24] MEDS: LIDOCAINE 5% 1 PATCH TD SCH (08:46)
[2018-08-24] MEDS: INSULIN ASPART 100 UNITS/ML 3 ML PEN SC SCH ×4 (08:53→20:40)
[2018-08-24] MEDS ORDERED: INSULIN GLARGINE SOLOSTAR 100 UNITS/ML 3 ML PEN SC SCH (09:00)
[2018-08-24 09:05] LABS: Calcium 9.3 mg/dl (8.5-10.1); Creatinine Clr Calc Pharmacy 90.1 ml/min; Est GFR (African American) 93.4; Est GFR (Non-African American) 80.6; Potassium 3.8 mmol/L (3.5-5.1)
--- NOTE | 2018-08-24 09:33 | Progress Note ---
DATE: 08/24/2018 Ms. German is seen today. She is complaining of pain in her back and going down her right leg; however, my concern with her is the fact that the patient remains on oxygen. She remains on 2 liters with 95% sats. She does have decreased breath sounds. I may go ahead and check another x-ray on her today. We may end up offering her a thoracentesis, but she had very little fluid in her chest and I do not think this is going to make much of a clinical difference.
[2018-08-24] MEDS: VANCOMYCIN HCL 1,250 MG in SODIUM CHLORIDE 0.9% 250 ML IV SCH (09:41)
--- NOTE | 2018-08-24 10:36 | Progress Note ---
DATE: 08/24/2018 SUBJECTIVE: She is alert, oriented, still significant back pain but improving. OBJECTIVE: Vital signs stable, blood pressure slightly elevated. Wound clean. ASSESSMENT: Status post reconstructive spine surgery. PLAN: We will get her up and ambulatory today. She needs to ambulate. She needs to get up on her feet, I have encouraged her 3 times a day and I believe the pain will resolve. Surgery is not being considered.
--- NOTE | 2018-08-24 10:40 | Pharmacy Report ---
Pharmacy Glycemic Short Note 2 - Date of Service August 24, 2018 - Glycemic Short BSG Results (Last 24 hours): 08/23/18 08/23/18 08/23/18 12:05 17:21 20:42 Glucose POC Glucose 203 H 70 165 H 08/24/18 08/24/18 08/24/18 05:57 08:14 08:27 Glucose 145 H POC Glucose 111 H 162 H ASSESSMENT: She required 72 units of insulin yesterday. BSGs remain reasonably controlled. Antibx and diet continue. We will continue with the current insulin orders that are in place. PLAN FOR INPATIENT GLYCEMIC CONTROL: * Hold outpatient oral diabetes medications * Basal insulin * Lantus 25 units QAM; PM scale 10 units <110, 15 units 110-200, 20 units >200 * Bolus insulin * NovoLog per scale ACHS or Q6hrs while NPO * Goal Range: Low 120 mg/dL - High 160 mg/dL * Correction Factor: 15 mg/dL/unit * Nutritional / Prandial insulin per carb ratio of 1 unit per 4 grams CHO consumed
[2018-08-24] MEDS: cefTRIAXone SODIUM 2,000 MG in DEXTROSE 5% 70 ML IV SCH (11:56)
--- NOTE | 2018-08-24 15:20 | Pharmacy Report ---
Pharmacy Abx Dose Short Note - Date of Service August 24, 2018 - Assessment & Plan Assessment 68 year old F receiving Vancomycin 1250mg IV q14h for treatment of possible infected surgical site Day #3 of antimicrobial therapy. Patient also receiving Rocephin 2gm IV q24h and Azithromax 250mg po daily Plan Vancomycin * Trough level of 19.8 mcg/mL is therapeutic, but this level was drawn prior to steady state * Change to 1000 mg IV every 14 hours * Patient is expected to accumulate due to elevated BMI of 42 * Goal trough level for SST: 15 to 20 mcg/mL * Trough level ordered for: 08/25/18 1230 * Getting another level after 2 additional doses to make sure patient is dosed appropriately and not accumulating too much Pharmacy will continue to follow and will adjust dose/frequency as necessary. Thank you.
[2018-08-24] MEDS: SENNA 8.6 MG TAB PO SCH (20:22)
[2018-08-24] MEDS: ATORVASTATIN 40 MG TAB PO SCH (20:24)
[2018-08-24] MEDS: AMLODIPINE BESYLATE 5 MG TAB PO SCH (20:25)
[2018-08-24] MEDS: INSULIN GLARGINE SOLOSTAR 100 UNITS/ML 3 ML PEN SC SCH (20:38)
[2018-08-24] MEDS: VANCOMYCIN HCL 1,000 MG in SODIUM CHLORIDE 0.9% 250 ML IV SCH (22:48)
--- NOTE | 2018-08-24 23:55 | Hospitalist Progress Note ---
Date of Service August 24, 2018 Assessment & Plan (1) Fever and chills: 68 y/o F Hx HTN, HLD, DM II, obese, hypothyroid, lumbar stenosis. She underwent an uncomplicated L2-3 discectomy and fusion 08/12/18. She had been recovering well initially and then had onset of worsening back pain, difficulty walking and fevers. She reports a Tmax of 102 the prior evening. She denies a cough, SOB, N/V/Adeline dysuria. It is not clear if she is have lower extremity weakness or if she is unable to walk due to pain. She presented to [place] initially and was transferred to [facility] as her surgery took place here. Review of labs from [place] demonstrate a normal lactic acid, Anemia with an H b of 8.7 and an elevated ALT and Alk phos. 1) Back pain and fever post-op -'s after, orthopedist is not actively concerned that she has a surgical site infection at this time. She was initially placed on Vanc and ceftriaxone She has refusd blood cultures, Urine culture shows no growth antibiotics stopped 08/18 MRI from 08/16 impression 1. Large collection in the laminectomy bed, which is heterogeneously T2 hyperintense and nonenhancing. Sterility cannot be confirmed. This is most worrisome for phlegmonous change/early abscess. This results in significant spinal canal narrowing. However, no evidence of cauda equina impingement. No arachnoiditis. 2. Focal 1 cm collection in the posterior epidural space at the level of L3 resulting in moderate to severe spinal canal narrowing. This is new from prior and also concerning for a focal epidural abscess. This may be contiguous with the above-mentioned larger collection. As noted above: ortho does not believe this to be infectious. On 08/22: began having an erythematous raised lesion adjacent to the surgical wound. Lesion was delineated. Showed to nursing staff who agree, it is red and raised and tender. Placed on antibiotics. Patient is a hard stick, and unable to obtain cultures. Informed ortho and ID. Consults placed. On 08/24 Less erythema is noted. D/W ID. Appears to be infectious, difficult to titrate antibiotics due to lack of culture. Will need long course of antibiotics. will continue to treat. Cellulitis: As noted above. DM II - placed on a sliding scale remains with reasonable control HTN -remains on valsartan. BP appears controlled. HLD - cont Atorvastatin with home dosing Hypothyroidism -remains on Synthroid LFTs improved- this may be a post-op elevation. She does not have any GI symptoms at present Constipation will increase cathartic agents (2) Hypoxia: Patient continues to require oxygen. Discussed with thoracic surgeon. No need for thoracocenthesis. Patient not improving. Concern over possible infectious process. Will place on azithromycin and will restart ceftriaxone. No improvement on 08/24 Full code - SCDs Spent 35 minutes in management of patient. Subjective Patient is 68 yo female, she reports he back pain is mildly better today. She denies any fever, chills, nausea, or vomiting. Review of Systems Review of Systems: ROS: well nourished well developed. No double vision blurry vision No problems with speech or swallowing No palpitations, chest pain or pressure No Wheezing or breathing issues No abdominal pain nausea vomiting diarrhea changes in appetite or weight No burning urine urine frequency or changes in color No focal joint pain or muscle pain No skin rashes or oral lesions No unusual bruising or bleeding Patient has persistent luis-incisional back pain without fluctuance No changes in memory or confusion Physical Exam Physical Exam: The patient appeared well nourished and only in moderate distress today due to pain. Vital signs as documented. Head exam is unremarkable. normocephalic, atraumatic Neck is without jugular venous distension, thyromegaly, or lymphademopathy Lungs are clear to auscultation , decreased breath sounds on bases. Cardiac exam reveals Rhythm is regular. First and second heart sounds normal. Abdominal exam reveals normal bowel sounds, no masses, no organomegaly Examination of her back only reveals mild luis-incisional tenderness no fluctuance no warmth, on her left buttock, her skin was less raised, erythematous, arm and less tender to palpation. Extremities are nonedematous and both pedal pulses are present Neurologic exam is A&Ox3, no focal deficits, strength is equal bilateral Psychologically seems neither anxious or depressed Skin is warm / Dry there is a dressing on the wound site Results & Data Vital Signs (Past 12 Hours) Vital Signs Temp Pulse Pulse Resp BP BP Pulse Ox 08/24/18 22:53 36.9 C 85 16 170/71 H 95 08/24/18 18:58 87 161/70 H 08/24/18 15:00 36.6 C 83 20 183/63 H 98 PG Care Time/CCT Total # of Minutes Spent Total Time Spent with Patient: Total time spent is greater than 50% in coordination of care (as documented) at patient's floor/unit and/or counseling patient:
[2018-08-25] MEDS: HYDROCODONE/ACETAMINOPHEN 10/325 TAB PO PRN ×4 (01:10→20:14)
[2018-08-25] MEDS: HYDROmorphone INJ 1 MG/ML SYRINGE IV PRN ×3 (05:40→23:34)
[2018-08-25] MEDS: LEVOTHYROXINE SODIUM 125 MCG TABLET PO SCH (06:18)
--- NOTE | 2018-08-25 07:09 | XRay Report ---
XR chest 1V portable CLINICAL HISTORY: Pleural effusion COMPARISON STUDY: 08/22/2018 FINDINGS: The heart remains enlarged. There is aortic tortuosity/ectasia. There is a persistent right pleural effusion with associated right basilar airspace opacities. There is diffuse elevation of the interstitium, an element of mild pulmonary vascular congestion/fluid overload is suspected.[ IMPRESSION: 1. Persistent right pleural effusion with associated right lower lobe atelectasis/consolidation 2. Interval development of mild diffuse elevation of the interstitium a finding suggesting mild under lying congestive failure/fluid overload Electronically signed by: Dion Pacheco M.D. 08/25/2018 7:08 AM
[2018-08-25] MEDS: LIDOCAINE 5% 1 PATCH TD SCH (08:14)
[2018-08-25] MEDS: AZITHROMYCIN 250 MG TAB PO SCH (08:14)
[2018-08-25] MEDS: LANSOPRAZOLE 30 MG SOLTAB PO SCH (08:14)
[2018-08-25] MEDS: DULOXETINE HCL 30 MG CAP PO SCH (08:14)
[2018-08-25] MEDS: POLYETHYLENE (MIRALAX) 17 GM PACK PO SCH ×2 (08:14→20:11)
[2018-08-25] MEDS: GABAPENTIN 800 MG TAB PO SCH ×3 (08:14→20:09)
[2018-08-25] MEDS: VALSARTAN 80 MG TAB PO SCH (08:14)
[2018-08-25] MEDS ORDERED: INSULIN GLARGINE SOLOSTAR 100 UNITS/ML 3 ML PEN SC STA (08:39)
[2018-08-25 08:41] LABS: Creatinine Clr Calc Pharmacy 114.2 ml/min; Est GFR (African American) 108.5; Est GFR (Non-African American) 93.7
[2018-08-25] MEDS: INSULIN ASPART 100 UNITS/ML 3 ML PEN SC SCH ×4 (09:46→20:21)
--- NOTE | 2018-08-25 10:32 | Pharmacy Report ---
Pharmacy Glycemic Short Note 2 - Date of Service August 25, 2018 - Glycemic Short BSG Results (Last 24 hours): 08/24/18 08/24/18 08/24/18 11:57 17:09 20:35 POC Glucose 152 H 82 143 H 08/25/18 08:19 POC Glucose 70 ASSESSMENT: She required 78 units of insulin yesterday, BSGs over the previous 24 hrs fairly well controlled. She did have a FBS of 70mg/dL this AM. Will adjust metabolic insulin to avoid any hypoglcemia. PLAN FOR INPATIENT GLYCEMIC CONTROL: * Hold outpatient oral diabetes medications * Basal insulin * Lantus QAM scale: 15 units for BSGs<160, 25 units for BSGs >/=160 * HS scale: 10 units for BSGs <160, 15 units for BSGs >/=160 * Bolus insulin * NovoLog per scale ACHS or Q6hrs while NPO * Goal Range: Low 120 mg/dL - High 160 mg/dL * Correction Factor: 15 mg/dL/unit * Nutritional / Prandial insulin per carb ratio of 1 unit per 4 grams CHO consumed
--- NOTE | 2018-08-25 10:50 | Progress Note ---
DATE: 08/25/2018 Aure German was seen today on 08/25/2018. She is still complaining of pain in her back although not quite as bad as yesterday. We did do an x-ray today and it does show some consolidation in the right base which has not changed significantly. Most of this is atelectasis. She does have decreased breath sounds in this area on auscultation posteriorly. I had a long talk with Mrs. German here at the bedside. We explained that the incentive spirometer and coughing and ambulation is quite important for her lung. At this point, despite the fact that the patient is requiring 2 liters of oxygen, she has no elevated white count and no fever. It would be unlikely that we were dealing with a significant infection, but at this point I will continue to follow her along, but I do not feel we are going to need to do a thoracentesis.
[2018-08-25] MEDS: cefTRIAXone SODIUM 2,000 MG in DEXTROSE 5% 70 ML IV SCH (11:19)
[2018-08-25] MEDS ORDERED: VANCOMYCIN TROUGH ONE (12:30)
[2018-08-25] MEDS: VANCOMYCIN HCL 1,000 MG in SODIUM CHLORIDE 0.9% 250 ML IV SCH (14:50)
--- NOTE | 2018-08-25 15:20 | Pharmacy Report ---
Pharmacy Abx Dose Short Note - Date of Service August 25, 2018 - Assessment & Plan Assessment 68 year old F receiving Vancomycin 1000mg IV q14h for treatment of possible infected surgical site Day #4 of antimicrobial therapy. Patient also receiving Rocephin 2gm IV q24h and Azithromax 250mg po daily Blood cultures x2 show no growth Plan Vancomycin * Trough level of 17.2 mcg/mL is therapeutic * Continue dose of 1000 mg IV every 14 hours * Goal trough level for SST: 15 to 20 mcg/mL * Trough or random level ordered for: 08/27/18 at 0630 Pharmacy will continue to follow and will adjust dose/frequency as necessary. Thank you.
[2018-08-25] MEDS: ATORVASTATIN 40 MG TAB PO SCH (20:08)
[2018-08-25] MEDS: SENNA 8.6 MG TAB PO SCH ×2 (20:09→20:11)
[2018-08-25] MEDS: AMLODIPINE BESYLATE 5 MG TAB PO SCH (20:09)
[2018-08-25] MEDS: INSULIN GLARGINE SOLOSTAR 100 UNITS/ML 3 ML PEN SC SCH (20:22)
--- NOTE | 2018-08-25 23:55 | Hospitalist Progress Note ---
Date of Service August 25, 2018 Assessment & Plan (1) Fever and chills: 68 y/o F Hx HTN, HLD, DM II, obese, hypothyroid, lumbar stenosis. She underwent an uncomplicated L2-3 discectomy and fusion 08/12/18. She had been recovering well initially and then had onset of worsening back pain, difficulty walking and fevers. She reports a Tmax of 102 the prior evening. She denies a cough, SOB, N/V/Adeline dysuria. It is not clear if she is have lower extremity weakness or if she is unable to walk due to pain. She presented to [facility] initially and was transferred to [facility] as her surgery took place here. Review of labs from [facility] demonstrate a normal lactic acid, Anemia with an H b of 8.7 and an elevated ALT and Alk phos. 1) Back pain and fever post-op -DrSabrina's after, orthopedist is not actively concerned that she has a surgical site infection at this time. She was initially placed on Vanc and ceftriaxone She has refusd blood cultures, Urine culture shows no growth antibiotics stopped 08/18 MRI from 08/16 impression 1. Large collection in the laminectomy bed, which is heterogeneously T2 hyperintense and nonenhancing. Sterility cannot be confirmed. This is most worrisome for phlegmonous change/early abscess. This results in significant spinal canal narrowing. However, no evidence of cauda equina impingement. No arachnoiditis. 2. Focal 1 cm collection in the posterior epidural space at the level of L3 resulting in moderate to severe spinal canal narrowing. This is new from prior and also concerning for a focal epidural abscess. This may be contiguous with the above-mentioned larger collection. As noted above: ortho does not believe this to be infectious. On 08/22: began having an erythematous raised lesion adjacent to the surgical wound. Lesion was delineated. Showed to nursing staff who agree, it is red and raised and tender. Placed on antibiotics. Patient is a hard stick, and unable to obtain cultures. Informed ortho and ID. Consults placed. On 08/25 Less erythema and swelling is noted on past 2 days. D/W ID. Appears to be infectious, difficult to titrate antibiotics due to lack of culture. Will need long course of antibiotics: continue IV vanco as patient did not appear to be improving with ceftriaxone and azithromycin. will continue to treat. Cellulitis: As noted above. DM II - placed on a sliding scale remains with reasonable control HTN -remains on valsartan. BP appears controlled. HLD - cont Atorvastatin with home dosing Hypothyroidism -remains on Synthroid LFTs improved- this may be a post-op elevation. She does not have any GI symptoms at present Constipation will increase cathartic agents (2) Hypoxia: Combination of atelectasis, possible pneumonia, with fluid overload. Patient continues to require oxygen. Discussed with thoracic surgeon. No need for thoracocenthesis as Dr. Case does not feel this is pleural effusion, images show compression atelectasis with mild pleural effusion.. Patient not improving. Concern over possible infectious process. Will place on azithromycin and will restart ceftriaxone. No improvement on 08/[address] order of IV lasix in AM as patient was seen later in the day and patient did not want to be urinating the whole night. Creatinine has been stable. will recheck on 08/27 Full code - SCDs Subjective 68 yo female, reports mildly improved today in regards to her pain. Review of Systems Review of Systems: All systems reviewed & are unremarkable except as noted in HPI & below Physical Exam Physical Exam: The patient appeared well nourished. She does not appear to be in any distress today. Vital signs as documented. Head exam is unremarkable. normocephalic, atraumatic Neck is without jugular venous distension, thyromegaly, or lymphademopathy Lungs are clear to auscultation , decreased breath sounds on bases. Cardiac exam reveals Rhythm is regular. First and second heart sounds normal. Abdominal exam reveals normal bowel sounds, no masses, no organomegaly Examination of her back only reveals mild luis-incisional tenderness no fluctuance no warmth, on her left buttock, her skin was less raised, erythematous, arm and less tender to palpation. Extremities are nonedematous and both pedal pulses are present Neurologic exam is A&Ox3, no focal deficits, strength is equal bilateral Psychologically seems neither anxious or depressed Skin is warm / Dry there is a dressing on the wound site Results & Data Vital Signs (Past 12 Hours) Vital Signs Temp Pulse Resp BP Pulse Ox 08/25/18 15:00 36.6 C 77 20 152/98 H 91 PG Care Time/CCT Total # of Minutes Spent Total Time Spent with Patient: Total time spent is greater than 50% in coordination of care (as documented) at patient's floor/unit and/or counseling patient:
[2018-08-26] MEDS: VANCOMYCIN HCL 1,000 MG in SODIUM CHLORIDE 0.9% 250 ML IV SCH ×2 (03:25→17:20)
[2018-08-26] MEDS: HYDROCODONE/ACETAMINOPHEN 10/325 TAB PO PRN ×3 (03:27→17:48)
[2018-08-26] MEDS: LEVOTHYROXINE SODIUM 125 MCG TABLET PO SCH (05:43)
[2018-08-26] MEDS: HYDROmorphone INJ 1 MG/ML SYRINGE IV PRN (05:47)
[2018-08-26] MEDS ORDERED: FUROSEMIDE 40 MG/4 ML VIAL IV STA (06:57)
[2018-08-26] MEDS ORDERED: POTASSIUM CHLORIDE 20 MEQ TABCR PO STA (07:00)
[2018-08-26] MEDS ORDERED: FUROSEMIDE 40 MG in SYRINGE 0 ML IV STA (07:01)
[2018-08-26] MEDS: POLYETHYLENE (MIRALAX) 17 GM PACK PO SCH ×2 (08:19→20:34)
[2018-08-26] MEDS: AZITHROMYCIN 250 MG TAB PO SCH (08:19)
[2018-08-26] MEDS: DULOXETINE HCL 30 MG CAP PO SCH (08:19)
[2018-08-26] MEDS: LIDOCAINE 5% 1 PATCH TD SCH (08:19)
[2018-08-26] MEDS: LANSOPRAZOLE 30 MG SOLTAB PO SCH (08:19)
[2018-08-26] MEDS: VALSARTAN 80 MG TAB PO SCH (08:19)
[2018-08-26] MEDS: GABAPENTIN 800 MG TAB PO SCH ×3 (08:20→20:32)
[2018-08-26] MEDS: INSULIN ASPART 100 UNITS/ML 3 ML PEN SC SCH ×4 (08:22→20:34)
[2018-08-26] MEDS: INSULIN GLARGINE SOLOSTAR 100 UNITS/ML 3 ML PEN SC SCH ×2 (08:23→20:29)
[2018-08-26 08:34] LABS: Basophils # (auto) 0.02 K/uL (0-0.2); Basophils % (auto) 0.3 %; Eosinophils # (auto) 0.22 K/uL (0-0.5); Eosinophils % (auto) 3.2 %; Hematocrit (blood only) 32.3 % (37-47); Hemoglobin 9.5 g/dL (12.0-16.0); Immature Granulocytes # (auto) 0.01 K/uL (0.00-0.02); Immature Granulocytes % (auto) 0.1 %; Lymphocytes # (auto) 1.28 K/uL (1.2-3.4); Lymphocytes % (auto) 18.4 %; Mean Corpuscular Hgb Conc 29.4 g/dL (32-36); Mean Corpuscular Volume 90.5 fL (80-100); Monocytes # (auto) 0.82 K/uL (0.11-0.59); Monocytes % (auto) 11.8 %; Neutrophils # (auto) 4.62 K/uL (1.4-6.5); Neutrophils % (auto) 66.2 %; Platelet Count 476 K/uL (130-400); RDW Coefficient of Variation 14.2 % (11.5-14.5); RDW Standard Deviation 46.8 fL (36.4-46.3); Red Blood Count 3.57 M/uL (4.2-5.4); White Blood Count 6.97 K/uL (4.8-10.8)
[2018-08-26 08:38] LABS: BUN Creatinine Ratio 13.6 (10-20); Calcium 9.4 mg/dl (8.5-10.1); Creatinine Clr Calc Pharmacy 96.5 ml/min; Est GFR (African American) 101.4; Est GFR (Non-African American) 87.5; Potassium 3.6 mmol/L (3.5-5.1)
[2018-08-26 08:41] LABS: Albumin Globulin Ratio 0.8 (0.9-2); Bilirubin,Total 0.5 mg/dl (0.2-1); Globulin 3.8 gm/dl (2.5-4.0); Total Protein 6.8 gm/dl (6.4-8.2)
[2018-08-26 08:57] LABS: Creatinine Clr Calc Pharmacy 99.3 ml/min; Est GFR (African American) 103.7; Est GFR (Non-African American) 89.4
--- NOTE | 2018-08-26 10:48 | Infectious Disease Progress Nt ---
Date of Service August 26, 2018 Assessment & Plan (1) Post-op pain: continue abx emperically, doubt blood cultures will be +. would give min 4 weeks emperically for ? infection, no OR cultures obtained, post op cellulitis noted on hip. remains afebrile and hemodynamically stable. will need weekly cbc,cmp, esr, vanco trough while on therapy - maintain 15-20 Subjective remains on emperic abx, tolerating well. vanco level yesterday 17. wbc nml. remains afebrile. Blood cultures obtained on 08/23 -negative to date but had been on several days of IV abx before cultures obtained. repeat cxr with increased fluid. no plans for thoracic surgery at this time. Results & Data Vital Signs (Past 12 Hours) Vital Signs Temp Pulse Pulse Resp BP Pulse Ox 08/26/18 06:47 36.8 C 87 16 125/69 95 08/25/18 23:04 36.8 C 89 16 168/75 H 97 Laboratory Results Microbiology 08/23/18 11:33 Blood Aerobic Blood Culture - Preliminary No growth in Aerobic bottle after 48 hours. 08/23/18 11:33 Blood Anaerobic Blood Culture - Final 08/23/18 11:22 Blood Aerobic Blood Culture - Preliminary No growth in Aerobic bottle after 48 hours. 08/23/18 11:22 Blood Anaerobic Blood Culture - Preliminary No growth in Anaerobic bottle after 48 hours. 08/16/18 14:55 Urine,Indwelling Cath Urine Culture - Final No growth - less than 1,000 colonies/mL.
[2018-08-26] MEDS: cefTRIAXone SODIUM 2,000 MG in DEXTROSE 5% 70 ML IV SCH (11:25)
--- NOTE | 2018-08-26 13:40 | Progress Note ---
DATE: 08/26/2018 SUBJECTIVE: Aure was visited on rounds mid morning of the 26 of August. She is improved, stable. OBJECTIVE: Her wound is clean and dry. I do not see any obvious signs of infection. She is alert, oriented, walks 20-30 feet. Afebrile. ASSESSMENT: Status post lumbar spine surgery, cellulitis, hyperlipidemia, hypertension, diabetes 2, gastroesophageal reflux disease, history of breast CA and morbid obesity. PLAN: At this point in time, I think she is safe to go home. I will let the PICC line and long-term antibiotics up to the infectious disease team. I think we can get her to a rehab or nursing type facility today at the latest tomorrow morning. We will get her sutures removed. We will see her back in the office in approximately 1-2 weeks.
--- NOTE | 2018-08-26 13:40 | Hospitalist Progress Note ---
Date of Service August 26, 2018 Assessment & Plan (1) Fever and chills: with post operative back pain. 68 y/o F Hx HTN, HLD, DM II, obese, hypothyroid, lumbar stenosis. She underwent an uncomplicated L2-3 discectomy and fusion 08/12/[address] Sapp . She had been recovering well initially and then had onset of worsening back pain, difficulty walking and fevers. MRI from 08/16 impression 1. Large collection in the laminectomy bed, which is heterogeneously T2 hyperintense and nonenhancing. Sterility cannot be confirmed. This is most worrisome for phlegmonous change/early abscess. This results in significant spinal canal narrowing. However, no evidence of cauda equina impingement. No arachnoiditis. 2. Focal 1 cm collection in the posterior epidural space at the level of L3 resulting in moderate to severe spinal canal narrowing. This is new from prior and also concerning for a focal epidural abscess. This may be contiguous with the above-mentioned larger collection. Ortho does not believe this to be infectious. Vancomycin and ceftriaxone initiated on 08/22 due to began having an erythematous raised lesion adjacent to the surgical wound. Unfortunately patient refused blood cultures initially and cultures drawn after antibiotics were started 08/23 are negative ID consulted - unable to de-escalate abx due to lack of cultures - will need IV vancomycin and ceftriaxone for 4 weeks. - PICC to be placed today (2) Cellulitis: as above (3) Post-op pain: Continue prn hydrocodone/APAP (4) Hypoxia: Combination of atelectasis, possible pneumonia, with fluid overload - CXR showing compression atelectasis with mild pleural effusion.. Patient continues to require oxygen. No need for thoracocentesis as Dr. Case did not feel it was a pleural effusion No improvement on 08/25 after antibiotics - given IV lasix this am (5) DMII (diabetes mellitus, type 2): bsgs ac & hs, ss (6) HTN (hypertension): continue valsartan (7) HLD (hyperlipidemia): continue statin (8) Hypothyroid: continue levothyroxine (9) Elevated LFTs: LFTs improved- this may be a post-op elevation. She does not have any GI symptoms at present transaminitis resolved Alk phos with mild elevation (10) DVT prophylaxis: SCDs Subjective Discussed necessity of PICC with Ms. German and she agrees, hopefully can get that placed this afternoon. She is feeling generally unwell today with pain in her back. Denies any saddle anesthesia or loss of control of bowel or bladder. I did watch her ambulate from bed to chair with walker independently and she was steady on her feet. Review of Systems Review of Systems: All systems reviewed & are unremarkable except as noted in HPI & below Physical Exam Physical Exam: General: no distress Eyes: normal inspection, PERLL Respiratory: chest non tender, clear to auscultation, normal breath sounds, no respiratory distress, no accessory muscle use Cardiac: regular rate and rhythm, no rub or gallop, no murmur, no edema, no jvd GI/: active bowel sounds, no abd pain or tenderness, soft, non distended Extremities: normal range of motion, normal strength, non tender Neuro/Psych: alert and oriented x 3, normal mood and affect Skin: normal color, dry Results & Data Vital Signs (Past 12 Hours) Vital Signs Temp Pulse Resp BP Pulse Ox 08/26/18 06:47 36.8 C 87 16 125/69 95 PG Care Time/CCT Total # of Minutes Spent Total Time Spent with Patient: Total time spent is greater than 50% in coordination of care (as documented) at patient's floor/unit and/or counseling patient:
[2018-08-26] MEDS ORDERED: LORazepam 1 MG TAB PO STA (15:54)
[2018-08-26] MEDS ORDERED: HYDROmorphone INJ 1 MG/ML SYRINGE IM PRN (16:56)
[2018-08-26] MEDS: ATORVASTATIN 40 MG TAB PO SCH (20:30)
[2018-08-26] MEDS: SENNA 8.6 MG TAB PO SCH (20:33)
[2018-08-26] MEDS: AMLODIPINE BESYLATE 5 MG TAB PO SCH (20:39)
[2018-08-27] MEDS: LEVOTHYROXINE SODIUM 125 MCG TABLET PO SCH (06:23)
[2018-08-27] MEDS: HYDROCODONE/ACETAMINOPHEN 10/325 TAB PO PRN ×3 (06:23→18:36)
[2018-08-27] MEDS ORDERED: VANCOMYCIN TROUGH ONE (06:30)
[2018-08-27 07:07] LABS: Creatinine Clr Calc Pharmacy 87.8 ml/min; Est GFR (African American) 90.5; Est GFR (Non-African American) 78.1
[2018-08-27] MEDS: VANCOMYCIN HCL 1,000 MG in SODIUM CHLORIDE 0.9% 250 ML IV SCH (07:16)
[2018-08-27] MEDS: INSULIN ASPART 100 UNITS/ML 3 ML PEN SC SCH ×3 (08:39→20:49)
[2018-08-27] MEDS: POLYETHYLENE (MIRALAX) 17 GM PACK PO SCH ×2 (08:41→20:41)
[2018-08-27] MEDS: GABAPENTIN 800 MG TAB PO SCH ×3 (08:43→20:43)
[2018-08-27] MEDS: INSULIN GLARGINE SOLOSTAR 100 UNITS/ML 3 ML PEN SC SCH ×2 (08:43→20:44)
[2018-08-27] MEDS: LANSOPRAZOLE 30 MG SOLTAB PO SCH (08:44)
[2018-08-27] MEDS: VALSARTAN 80 MG TAB PO SCH (08:45)
[2018-08-27] MEDS: DULOXETINE HCL 30 MG CAP PO SCH (08:45)
[2018-08-27] MEDS: LIDOCAINE 5% 1 PATCH TD SCH (08:46)
--- NOTE | 2018-08-27 09:56 | Hospitalist Progress Note ---
Date of Service August 27, 2018 Assessment & Plan (1) Fever and chills: with post operative back pain. 68 y/o F Hx HTN, HLD, DM II, obese, hypothyroid, lumbar stenosis. She underwent an uncomplicated L2-3 discectomy and fusion 08/12/[address] Sapp . She had been recovering well initially and then had onset of worsening back pain, difficulty walking and fevers. MRI from 08/16 impression 1. Large collection in the laminectomy bed, which is heterogeneously T2 hyperintense and nonenhancing. Sterility cannot be confirmed. This is most worrisome for phlegmonous change/early abscess. This results in significant spinal canal narrowing. However, no evidence of cauda equina impingement. No arachnoiditis. 2. Focal 1 cm collection in the posterior epidural space at the level of L3 resulting in moderate to severe spinal canal narrowing. This is new from prior and also concerning for a focal epidural abscess. This may be contiguous with the above-mentioned larger collection. Ortho does not believe this to be infectious. Vancomycin and ceftriaxone initiated on 08/22 due to began having an erythematous raised lesion adjacent to the surgical wound. Unfortunately patient refused blood cultures initially and cultures drawn after antibiotics were started 08/23 are negative ID consulted - unable to de-escalate abx due to lack of cultures - will need IV vancomycin and ceftriaxone for 4 weeks. - PICC was unable to be placed. IV team recommending JACC line - consult for process assistant to place (2) Cellulitis: left hip, erythema has completely resolved (3) Post-op pain: Continue prn hydrocodone/APAP (4) Hypoxia: Combination of atelectasis, possible pneumonia, with fluid overload - CXR showing compression atelectasis with mild pleural effusion.. Patient continues to require oxygen 2L NC No need for thoracocentesis as Dr. Case did not feel it was a pleural effusion No improvement on 08/25 after antibiotics - will give 40 mg IV lasix today Azithromycin given x 5 days. BNP and prp (5) DMII (diabetes mellitus, type 2): bsgs ac & hs, ss (6) HTN (hypertension): continue valsartan (7) HLD (hyperlipidemia): continue statin (8) Hypothyroid: continue levothyroxine (9) Elevated LFTs: LFTs improved- this may be a post-op elevation. She does not have any GI symptoms transaminitis resolved Alk phos with mild elevation (10) DVT prophylaxis: SCDs Dispo: [facility] Subjective Ms. German feels generally unwell today with some back pain. Review of Systems Review of Systems: All systems reviewed & are unremarkable except as noted in HPI & below Physical Exam Physical Exam: General: no distress Eyes: normal inspection, PERLL Respiratory: chest non tender, clear to auscultation, normal breath sounds, no respiratory distress, no accessory muscle use Cardiac: regular rate and rhythm, no rub or gallop, no murmur, no edema, no jvd GI/: active bowel sounds, no abd pain or tenderness, soft, non distended Extremities: normal range of motion, normal strength, non tender Neuro/Psych: alert and oriented x 3, normal mood and affect Skin: normal color, dry Results & Data Vital Signs (Past 12 Hours) Vital Signs Temp Pulse Resp BP Pulse Ox 08/27/18 07:02 37.1 C 84 20 163/77 H 93 08/26/18 23:02 37.3 C 91 H 16 130/75 95 PG Care Time/CCT Total # of Minutes Spent Total Time Spent with Patient: Total time spent is greater than 50% in coordination of care (as documented) at patient's floor/unit and/or counseling patient:
[2018-08-27] MEDS ORDERED: FUROSEMIDE 40 MG in SYRINGE 0 ML IV ONE (10:45)
[2018-08-27 10:56] LABS: BUN Creatinine Ratio 11.4 (10-20); Calcium 9.3 mg/dl (8.5-10.1); Creatinine Clr Calc Pharmacy 84.6 ml/min; Est GFR (African American) 86.5; Est GFR (Non-African American) 74.6; Potassium 3.7 mmol/L (3.5-5.1)
[2018-08-27] MEDS ORDERED: FUROSEMIDE 40 MG TAB PO ONE (11:20)
--- NOTE | 2018-08-27 12:19 | Pharmacy Report ---
Pharmacy Glycemic Short Note 2 - Date of Service August 27, 2018 - Glycemic Short BSG Results (Last 24 hours): 08/26/18 08/26/18 08/26/18 12:08 16:53 20:15 Glucose POC Glucose 136 H 168 H 200 H 08/27/18 08/27/18 08/27/18 08:12 10:12 12:02 Glucose 192 H POC Glucose 138 H 152 H ASSESSMENT: * BSG's ranged 138-200 mg/dL over the last 24 hours * AM fasting BSg in range at 138 mg/dL this AM after receiving 30 units of Lantus yesterday. Will continue similar/same dose of Lantus but adjust parameters based on BSG * Trend over last 2 days with one BSG > 180 mg/dL, which occurred both times at HS. Will very slightly tighten dinner CHO ratio only to help prevent any BSG > 180 mg/dL * OK to decrease goal range as stressors are stable and BSG's have not been significantly labile PLAN FOR INPATIENT GLYCEMIC CONTROL: * Hold outpatient oral diabetes medications * Basal insulin: Lantus SC BID based on BSG as follows: * 12 units for BSG less than 100 mg/dL * 15 units for BSG 100-140 mg/dL * 18 units for BSG greater than 140 mg/dL * Bolus insulin * NovoLog per scale ACHS or Q6hrs while NPO * Goal Range: Low 110 mg/dL - High 140 mg/dL * Correction Factor: 15 mg/dL/unit * Carb ratio: 4 g CHO/unit (except dinner, which is 3.5 g CHO/unit)
[2018-08-27] MEDS: levoFLOXacin 500 MG TAB PO SCH (13:00)
[2018-08-27] MEDS: LINEZOLID 600 MG TAB PO SCH ×2 (13:00→20:43)
--- NOTE | 2018-08-27 13:23 | Infectious Disease Progress Nt ---
Date of Service August 27, 2018 Assessment & Plan (1) Post-op pain: continue abx emperically, doubt blood cultures will be +. would give min 4 weeks emperically for ? infection, no OR cultures obtained, post op cellulitis noted on hip. remains afebrile and hemodynamically stable. now unable to undergo treatment with IV abx, will plan on zyvox after ssri stopped and levaquin x 4 weeks post op. Subjective pt unable to undergo termite treater helper line placement. all culture remain negative (obtained after several days of abx) remains afebrile. snf unable to take patient unless picc. afebrile. tolerating abx. was planning to change to po zyvox and levaquin for emperic therapy as no IV access, pt is on ssri. per pharmacy will hold x 24 h and start zyvox. Results & Data Vital Signs (Past 12 Hours) Vital Signs Temp Pulse Resp BP Pulse Ox 08/27/18 11:31 98 08/27/18 10:37 67 98 08/27/18 07:02 37.1 C 84 20 163/77 H 93 Laboratory Results Microbiology 08/23/18 11:33 Blood Aerobic Blood Culture - Preliminary No growth in Aerobic bottle after 48 hours. 08/23/18 11:33 Blood Anaerobic Blood Culture - Final 08/23/18 11:22 Blood Aerobic Blood Culture - Preliminary No growth in Aerobic bottle after 48 hours. 08/23/18 11:22 Blood Anaerobic Blood Culture - Preliminary No growth in Anaerobic bottle after 48 hours. 08/16/18 14:55 Urine,Indwelling Cath Urine Culture - Final No growth - less than 1,000 colonies/mL.
--- NOTE | 2018-08-27 15:03 | XRay Report ---
XR chest 2V routine CLINICAL HISTORY: hypoxia dyspnea COMPARISON STUDY: 08/25/2018 FINDINGS: Chronic elevation right hemidiaphragm. Mild stable cardiomegaly. Atelectasis right base. Maya ngs otherwise appear clear. IMPRESSION: Mild atelectasis right base. No acute process. The above report was generated using voice recognition software. It may contain grammatical, syntax or spelling errors. Electronically signed by: Wilian Geronimo M.D. 08/27/2018 3:02 PM
[2018-08-27] MEDS ORDERED: INSULIN ASPART 100 UNITS/ML 3 ML PEN SC SCH (16:30)
[2018-08-27] MEDS: ATORVASTATIN 40 MG TAB PO SCH (20:43)
[2018-08-27] MEDS: SENNA 8.6 MG TAB PO SCH (20:43)
[2018-08-27] MEDS: AMLODIPINE BESYLATE 5 MG TAB PO SCH (20:44)
[2018-08-27] MEDS: TEMAZEPAM 15 MG CAPSULE PO PRN (21:01)
[2018-08-28] MEDS: HYDROCODONE/ACETAMINOPHEN 10/325 TAB PO PRN ×3 (01:05→14:01)
[2018-08-28] MEDS: LEVOTHYROXINE SODIUM 125 MCG TABLET PO SCH (06:08)
--- NOTE | 2018-08-28 07:30 | Progress Note ---
DATE: 08/28/2018 Ms. Aure German was seen today on 08/28/2018. She states that she feels better. She has a better cough. She has no wheezing or rales on auscultation. Her chest x-ray yesterday I thought looked a bit better. She certainly does not seem to have much of an effusion. We will continue to follow her peripherally, but I think aggressive pulmonary toilet with incentive spirometer improved coughing, especially improved ambulation, will allow us to get her off of this oxygen.
[2018-08-28] MEDS: LIDOCAINE 5% 1 PATCH TD SCH (07:41)
[2018-08-28] MEDS: VALSARTAN 80 MG TAB PO SCH (07:42)
[2018-08-28] MEDS: LANSOPRAZOLE 30 MG SOLTAB PO SCH (07:43)
[2018-08-28] MEDS: GABAPENTIN 800 MG TAB PO SCH ×2 (07:43→12:57)
[2018-08-28] MEDS: POLYETHYLENE (MIRALAX) 17 GM PACK PO SCH (07:44)
[2018-08-28] MEDS: LINEZOLID 600 MG TAB PO SCH (08:26)
[2018-08-28] MEDS: INSULIN ASPART 100 UNITS/ML 3 ML PEN SC SCH ×2 (08:27→12:53)
[2018-08-28] MEDS: INSULIN GLARGINE SOLOSTAR 100 UNITS/ML 3 ML PEN SC SCH (08:29)
[2018-08-28 08:49] LABS: Hematocrit (blood only) 32.6 % (37-47); Hemoglobin 9.7 g/dL (12.0-16.0); Mean Corpuscular Hgb Conc 29.8 g/dL (32-36); Mean Corpuscular Volume 88.6 fL (80-100); Mean Platelet Volume 11.2 fL (7.4-10.4); Platelet Count 413 K/uL (130-400); RDW Coefficient of Variation 14.5 % (11.5-14.5); RDW Standard Deviation 47.1 fL (36.4-46.3); Red Blood Count 3.68 M/uL (4.2-5.4); White Blood Count 4.73 K/uL (4.8-10.8)
--- NOTE | 2018-08-28 09:56 | Discharge Summary ---
Date of Service August 28, 2018 Admission HPI Per Admitting Provider 68 y/o F Hx HTN, HLD, DM II, obese, hypothyroid, lumbar stenosis. She underwent an uncomplicated L2-3 discectomy and fusion 08/12/18. She had been recovering well initially and then had onset of worsening back pain, difficulty walking and fevers. She reports a Tmax of 102 the prior evening. She denies a cough, SOB, N/V/Adeline dysuria. It is not clear if she is have lower extremity weakness or if she is unable to walk due to pain. She presented to [facility] initially and was transferred to [facility] as her surgery took place here. Review of labs from [facility] demonstrate a normal lactic acid, Anemia with an Hb of 8.7 and an elevated ALT and Alk phos. 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 Principal Diagnosis Febrile illness, cellulitis Discharge Exam Constitutional WD/WN, vitals as above Respiratory normal respiratory effort, lungs clear to auscultation Cardiovascular RRR, no murmur, no edema Gastrointestinal (Abdomen) Inspection/Auscultation: abdomen normal to inspection and normal bowel sounds; abdomen not distended Percussion/Palpation: abdomen nontender Musculoskeletal no cyanosis or clubbing, extremities motor strength 5/5 Skin no rashes, warm and dry Neurologic CN's II-XI intact bilaterally, moves all extremities and awake Discharge Data Allergies Allergy/AdvReac Type Severity Reaction Status Date / Time citalopram [From Celexa] AdvReac Gastrointestinal Verified 08/12/18 06:17 Upset oxycodone [From Roxicodone] AdvReac Agitated Verified 08/15/18 18:44 sertraline [From Zoloft] AdvReac Gastrointestinal Verified 08/12/18 06:17 Upset trazodone AdvReac Gastrointestinal Verified 08/12/18 06:17 Upset Consultations 08/15/18 19:55 Consult Orthopedic Surgery Routine 08/16/18 09:07 Consult Case Management - Discharge Planning Routine 08/20/18 16:04 Consult Thoracic Surgery Routine 08/22/18 15:28 Consult Infectious Diseases Routine Ordered Studies 08/15/18 19:07 MR lumbar spine wo/w con Routine 08/21/18 07:23 CT chest wo con Urgent Hospital Course (1) Fever and chills: with post operative back pain. 68 y/o F Hx HTN, HLD, DM II, obese, hypothyroid, lumbar stenosis. She underwent an uncomplicated L2-3 discectomy and fusion 08/12/[address] Sapp . She had been recovering well initially and then had onset of worsening back pain, difficulty walking and fevers. MRI from 08/16 impression 1. Large collection in the laminectomy bed, which is heterogeneously T2 hyperintense and nonenhancing. Sterility cannot be confirmed. This is most worrisome for phlegmonous change/early abscess. This results in significant spinal canal narrowing. However, no evidence of cauda equina impingement. No ar achnoiditis. 2. Focal 1 cm collection in the posterior epidural space at the level of L3 resulting in moderate to severe spinal canal narrowing. This is new from prior and also concerning for a focal epidural abscess. This may be contiguous with the above-mentioned larger collection. Ortho does not believe this to be infectious. Vancomycin and ceftriaxone initiated on 08/22 due to began having an erythematous raised lesion adjacent to the surgical wound. Unfortunately patient refused blood cultures initially at [facility] but she did have cultures drawn 08/15 at [facility] which had no growth ID consulted - unable to de-escalate abx due to lack of cultures - given IV vancomycin and ceftriaxone - PICC was unable to be placed and patient will not be able to be accepted at [facility] with [facility] line so after discussing with ID, will change patient to Levaquin and linezolid for the remaining 3 weeks of her four week treatment (2) Cellulitis: left hip with surface wound, erythema has completely resolved (3) Post-op pain: Continue prn hydrocodone/APAP - increased to 15 mg hydrocodone due to continued pain (4) Hypoxia: Combination of atelectasis, possible pneumonia, with fluid overload - CXR showing compression atelectasis with mild pleural effusion. Repeat CXR 08/27 showed improvement, no effusion, mild atelectasis. Patient continues to require oxygen 2L NC No need for thoracocentesis as Dr. Case did not feel it was a pleural effusion Azithromycin given x 5 days. (5) DMII (diabetes mellitus, type 2): bsgs ac & hs, ss (6) HTN (hypertension): continue valsartan, amlodipine (7) HLD (hyperlipidemia): continue statin (8) Hypothyroid: continue levothyroxine (9) Elevated LFTs: LFTs improved- this may be a post-op elevation. She does not have any GI symptoms transaminitis resolved Alk phos with mild elevation (10) DVT prophylaxis: SCDs Dispo: [facility] Total Time Total Time Spent Total Time Spent (In Minutes): greater than 30 minutes Discharge Plan Discharge Items Patient Disposition: Transfer Inpatient Rehab Fac Reason For Visit: POST-LUMBAR FUSION, FEVER, WEAKNESS Discharge Diagnosis: same Discharge Goals: Decrease discomfort Activity: As commented below Activity Comment: try to ambulate 3-5 times dsaily Lifting: No more than 5 pounds Bathing: No limitations and Keep incision dry Non-emergency contact: Primary Care Provider Call non-emergency contact if: you have any medication questions Follow-up/Referrals: Dion Randall MD [Primary Care Provider] - Diet: Heart Healthy Addtl Provider Instructions: Please follow up with Dr. Sapp with orthopedics and with infectious disease in about a week. Linezolid and levoflaxacin should be taken for 3 weeks. Prescriptions: New amlodipine [Norvasc] 5 mg Tablet 10 mg PO QPM Qty: 30 RF: 0 hydrocodone-acetaminophen [[place]] 10-325 mg Tablet 1.5 tab PO Q6H PRN (Reason: pain) Qty: 20 RF: 0 levofloxacin 500 mg tablet 500 mg PO DAILY 21 Days Qty: 21 RF: 0 linezolid 600 mg Tablet 600 mg PO BID 21 Days Qty: 42 RF: 0 Continued OneTouch Ultra Blue Test Strip strip .ROUTE .MEDSUPPLY Qty: 10 RF: 0 gabapentin 800 mg tablet 800 mg PO TID Qty: 90 RF: 0 duloxetine 30 mg capsule,delayed release(DR/EC) 30 mg PO DAILY Qty: 1 RF: 0 lancets [OneTouch Delica Lancets] 33 gauge misc .ROUTE .MEDSUPPLY Qty: 100 RF: 0 atorvastatin 80 mg tablet 80 mg PO HS Qty: 90 RF: 0 glipizide 10 mg Tablet 10 mg PO QAM RF: 0 pioglitazone 45 mg Tablet 45 mg PO QAM RF: 0 temazepam 30 mg Capsule 30 mg PO HS PRN (Reason: Sleep) RF: 0 levothyroxine 125 mcg Tablet 125 mcg PO QAM RF: 0 lansoprazole [Prevacid] 30 mg Capsule,Delayed Release(Dr/Ec) 30 mg PO QAM RF: 0 valsartan 40 mg Tablet 40 mg PO QAM RF: 0 Januvia 100 mg Tablet 100 mg PO QAM RF: 0 metformin 750 mg Tablet Extended Release 24 Hr 750 mg PO BID RF: 0 Discontinued hydrocodone-acetaminophen 10-325 mg tablet 1 tab PO Q6H PRN (Reason: pain) Qty: 40 RF: 0 Stand-Alone Forms: [facility] Discharge Orders: Discharge Order (Routine); Ordered 08/28/18 Ordered By: Kathleen Johnson Skilled Items Patient informed of condition?: Yes DNR: No Discharge Level of Care: Skilled Communicable Disease: No Discharge Prognosis: Improving Admission Data Admit Date/Time: 08/15/18 18:22 Attending Provider: Ike Harley Admit Provider: Jad Solitario Primary Care Provider: Dion Randall Other Providers: Melo Sapp ; Jad Solitario ; Sam Case ; Meghan Saba ; Jin Valderrama ; Bryant Cano Service: Medical
[2018-08-28] MEDS ORDERED: levoFLOXacin 500 MG TAB PO SCH (11:00)
[2018-08-28] MEDS: levoFLOXacin 500 MG TAB PO SCH (12:50)
--- NOTE | 2018-08-28 13:05 | Pulmonary Consultation ---
Date of Consultation August 28, 2018 Assessment & Plan (1) Hypoxia: Impression: 1. Right lower lobe atelectasis with reactive pleural effusion, small not amenable to thoracentesis. This likely representing mucoid impaction. 2. Possible obstructive sleep apnea given her increased BMI. 3. The patient does not carry the diagnosis of COPD. She is off oxygen currently. 4. Small right-sided pleural effusion. Reactive. Plan: 1. Continue pulmonary toilet. 2. Ambulate the patient. 3. 2 steps testing for oxygen. 4. Doubt the patient will need oxygen at home. 5. For evaluation of obstructive sleep apnea, PSG can be done electively as an outpatient. 6. Patient should be transferred to the rehab. Thank you, will follow as needed. History of Present Illness Reason for Consultation: Pleural effusion Requesting Physician: Dr. Case Attending Physician: Ike Harley MD History of Present Illness Dear Dr. Case: Thank you for the kind referral of Mrs. German to pulmonary service. This is 68-year-old female without significant pulmonary past medical history, has a history of chronic back pain, presented to the hospital for laminectomy at L1-L2 according to her, underwent the procedure well without any difficulty. The patient was noted to have increased oxygen requirement and now she is requiring 2 L of oxygen in the past couple of days. The patient does not use oxygen and does not have any shortness of breath, her exercise limitation was related to her back pain. The patient denies any cough no hemoptysis, no nocturnal symptoms, denies any history of pneumonia, has not been admitted to the hospital due to respiratory issues. The patient was evaluated by Dr. Case for pleural effusion, and truly the patient has a small pleural effusion not amenable to thoracentesis. We were asked also to evaluate the patient from pulmonary standpoint regarding obstructive sleep apnea. Apart from the above, review of system otherwise was unremarkable. Patient denies any dysphagia, no aspiration, no nausea or vomiting, no heartburn no postnasal drip. She does not use any inhalers as mentioned above. She had a history of smoking quit over 25 years ago and she lives with her who is and was a smoker at the time she was living with him. She does not have any industrial exposure. Family history does not contribute to her current illness. Her medications also were reviewed personally. As well as her allergies. Allergies Allergy/AdvReac Type Severity Reaction Status Date / Time citalopram [From Celexa] AdvReac Gastrointestinal Verified 08/12/18 06:17 Upset oxycodone [From Roxicodone] AdvReac Agitated Verified 08/15/18 18:44 sertraline [From Zoloft] AdvReac Gastrointestinal Verified 08/12/18 06:17 Upset trazodone AdvReac Gastrointestinal Verified 08/12/18 06:17 Upset Home Medications Home Medications Medication Instructions Recorded Confirmed Type Januvia 100 mg PO QAM 07/09/18 08/12/18 History glipizide 10 mg PO QAM 07/09/18 08/12/18 History lansoprazole [Prevacid] 30 mg PO QAM 07/09/18 08/12/18 History levothyroxine 125 mcg PO QAM 07/09/18 08/12/18 History pioglitazone 45 mg PO QAM 07/09/18 08/12/18 History temazepam 30 mg PO HS PRN 07/09/18 08/12/18 History valsartan 40 mg PO QAM 07/09/18 08/12/18 History metformin 750 mg PO BID 08/12/18 08/12/18 History hydrocodone-acetaminophen 1 tab PO Q6H PRN #40 tab 08/13/18 Rx atorvastatin 80 mg tablet 80 mg PO HS #90 tab 08/14/18 08/14/18 Rx blood sugar diagnostic strips #10 ea 08/14/18 08/14/18 History duloxetine 30 mg capsule,delayed 30 mg PO DAILY #1 cap 08/14/18 08/14/18 History release gabapentin 800 mg tablet 800 mg PO TID #90 tab 08/14/18 08/14/18 History lancets 33 gauge #100 ea 08/14/18 08/14/18 History amlodipine [Norvasc] 10 mg PO QPM #30 tab 08/28/18 Rx hydrocodone-acetaminophen [[place]] 1.5 tab PO Q6H PRN #20 tab 08/28/18 Rx levofloxacin 500 mg PO DAILY 21 Days #21 tab 08/28/18 Rx linezolid 600 mg PO BID 21 Days #42 tab 08/28/18 Rx Patient History Medical History Chronic back pain PT STATES +PAIN RADIATING FROM LOWER BACK INTO RIGHT HIP AND LEG. Degenerative disc disease Diabetes mellitus, type 2 GERD (gastroesophageal reflux disease) History of breast cancer s/p R mastectomy and subsequent reconstruction Hyperlipidemia Hypertension Hypothyroidism Morbid obesity Osteoarthritis Surgical History History of breast surgery RECONTRUCTIVE SURGERY 1 YEAR FOLLOWING MASTECTOMY History of carpal tunnel release B/L History of cataract extraction with lens replacement B/L History of section X2 History of cholecystectomy History of hysterectomy History of repair of rotator cuff B/L SHOULDER History of right mastectomy History of tonsillectomy S/P lumbar spinal fusion 08/12/18 Dr. Melo Sapp Social History Preferred Language: Kazakh Communication Ability: Effective Snuff Blender Required: No Beliefs That Will Affect Care: None Current Living Situation: Family Other Information That Helps Us Care for You: No Feels Safe at Home: Yes Safety Concerns: Feels Safe At This Time Smoking Status: Former smoker Tobacco Type: cigarettes Cigarettes Per Day: history of 1 PPD X 20 years, quit 20 years ago, 1998 Do You Dip or Chew Tobacco: No Second Hand Exposure: No Tobacco Cessation Education Requested by Patient: No Hx Alcohol Use: No Hx Substance Use: No Review of Systems Review of Systems: Review of system otherwise was unremarkable including 14 systems. Physical Exam Physical Exam: Vital signs are stable currently the patient is 96% on room air at rest. S1-S2 regular rate and rhythm. Minimal diminished breath sounds at the right base. Abdomen is benign but obese. Trace edema in the periphery. Neurologically she is intact. She is wearing spinal brace. Results & Data Vital Signs (Past 12 Hours) Vital Signs Temp Pulse Pulse Pulse Resp BP BP 08/28/18 12:46 36.9 C 87 83 79 18 125/63 146/70 H 08/28/18 08:36 08/28/18 07:12 36.9 C 79 18 146/70 H Pulse Ox 08/28/18 12:46 96 08/28/18 08:36 96 08/28/18 07:12 98 Laboratory Results Labs were reviewed as well. Diagnostic Findings Chest x-ray showed small pleural effusion on the right with elevation of the right hemidiaphragm, CAT scan of the chest showed small atelectasis in the right lower lobe with reactive pleural effusion.
== END 2018-08-28 15:34 | DRG 864 ==
LOC: SUATTDRO 18:22 → 2N 18:22 → 3W 08-17 11:08